=== PATIENT | male | born 1970 | race Caucasian/White ===

== ENCOUNTER → 2020-09-22 16:37 | Outpatient (CLI) | payer MEDICARE, SELFPAY ==
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
== END ==
PROVIDERS: PCP Internal Medicine; Referring Provider Nurse Practitioner; Visit Provider Nurse Practitioner
DX: S06.0X9A Concussion with loss of consciousness of unspecified duration, initial encounter (principal)
CPT/HCPCS: 70470; Q9967

== ENCOUNTER → 2020-10-27 17:50 | Outpatient (CLI) | payer MEDICARE, SELFPAY ==
--- NOTE | 2020-10-27 17:55 | CT_ITS ---
STUDY: CT ABDOMEN AND PELVIS WITHOUT CONTRAST REASON FOR EXAM: Male, 50 years old. PAIN, HERNIA RADIATION DOSAGE (If Supplied By Facility): CTDIvol = ( 27.66 ) mGy, DLP = ( 1397.05 ) mGycm TECHNIQUE: Transaxial images were obtained from the dome of the diaphragm to the symphysis pubis with oral contrast, and without intravenous contrast. Sagittal and coronal images were reconstructed. Individualized dose optimization techniques were used for this CT. COMPARISON: None. FINDINGS: The visualized lung bases are unremarkable. The visualized portions of the heart are within normal limits. Liver is unremarkable aside from subcentimeter simple cysts in the right lobe. Normal gallbladder and extrahepatic biliary system. Normal spleen. Normal pancreas. There is a 2.85 cm low attenuation left adrenal mass, consistent with an adrenal adenoma. Normal right adrenal gland. Normal right kidney. Normal left kidney. There is a small hiatal hernia. Multiple nondistended fluid-filled small bowel loops are noted consistent with ileus. On the axial images from image 43 through 49 there is mesenteric twisting which could be causing the ileus. There is no obstructing lesion noted. Retained stool noted in the colon with a few scattered diverticula. Evidence of previous surgery in the sigmoid colon without anastomotic leak. There is non-visualization of the appendix. There is diffuse atherosclerotic calcification of the abdominal aorta, without a demonstrated aneurysm. Normal inferior vena cava. Normal retroperitoneum. Normal urinary bladder. There are prostatic calcifications. There is a left-sided inguinal hernia containing adipose tissue. There are diffuse degenerative changes of the visualized lumbar spine, and pelvis. CT/Abdomen/Pel W ORAL Cont Only IMPRESSION: 2.85 cm left adrenal low-density lesion, likely adenoma. Simple cysts in the right lobe of the liver, no specific follow-up needed Small bowel ileus perhaps due to subtle twisting of the mid mesentery best seen on axial images 43 through 49 Diverticulosis Electronically Signed: Silvestre Kearns MD at 19:40 EDT , Service support ,
== END ==
PROVIDERS: PCP Internal Medicine; Referring Provider Internal Medicine; Visit Provider Internal Medicine
DX: R10.84 Generalized abdominal pain (principal)
CPT/HCPCS: 74176

== ENCOUNTER 2020-11-03 08:44 | Outpatient (RCR) | payer MEDICARE, SELFPAY ==
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
== END 2020-11-03 19:00 | disposition home or self-care (01) ==
LOC: PT 08:44
PROVIDERS: PCP Internal Medicine; Referring Provider Internal Medicine; Visit Provider Internal Medicine
DX: M25.511 Pain in right shoulder (principal); M54.12 Radiculopathy, cervical region
CPT/HCPCS: 97162

== ENCOUNTER → 2021-01-15 07:45 | Outpatient (CLI) | payer MEDICARE, SELFPAY ==
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
== END ==
PROVIDERS: PCP Internal Medicine; Referring Provider Otolaryngology; Visit Provider Otolaryngology
DX: J34.89 Other specified disorders of nose and nasal sinuses (principal); S09.92XA Unspecified injury of nose, initial encounter; Y09 Assault by unspecified means; Y93.9 Activity, unspecified; Y92.9 Unspecified place or not applicable; Y99.9 Unspecified external cause status
CPT/HCPCS: 70486

== ENCOUNTER 2021-06-09 02:13 | Emergency (ER) | payer MEDICARE, SELFPAY ==
[2021-06-09 02:15] VITALS: BP 116/73; PULSE 80; RESP 97; TEMP 36.6; BMI 43.9
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
[2021-06-09 03:09] VITALS: BP 112/69; PULSE 93; RESP 16; TEMP 36.9; O2SAT 98
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
--- NOTE | 2021-06-09 03:24 | NURSING ---
Patient refuses to sign ama papers at this time and asks I call for his ride.
--- NOTE | 2021-06-09 03:25 | ED.RN ---
Dr Jacob is aware of patient request to leave ama.
--- NOTE | 2021-06-09 03:26 | ED.RN ---
Left message to return call to [facility] ED
[2021-06-09 05:19] VITALS: RESP 17
[2021-06-09 07:19] LABS: Absolute Lymphocyte Count 2.46 X10^3/uL (0.83-4.51); Absolute Neutrophil Count 5.1 X10^3/uL (2.0-7.7); Basophil# 0.09 X10^3/uL; Eosinophil# 0.36 X10^3/uL; Eosinophils% 4.1 % (0-5); Hematocrit 48.3 % (40-54); Hemoglobin 16.1 g/dL (13.0-16.5); Lymphocyte # 2.46 X10^3/ul (0.83-4.51); Lymphocyte % 28.2 % (19-41); Mean Corp Hgb Conc 33.3 g/dL (32-36); Mean Corpuscular Hgb 30.8 pg (27.0-32.0); Mean Corpuscular Volume 92.4 fL (80-94); Mean Platelet Vol. 9.7 fl (6.2-12.0); Monocyte# 0.71 X10^3/uL; Monocyte% 8.1 % (0-10); NRBC Flagged by Analyzer 0 % (0-5); Neutrophil # 5.05 X10^3/uL (2.7-7.7); Platelet Count 270 K/mm3 (150-450); Red Blood Count 5.23 M/mm3 (4.6-6.2); White Blood Count 8.7 K/mm3 (4.4-11.0)
[2021-06-09 07:55] LABS: AST(SGOT) 19 U/L (15-37); Albumin, Serum 3.8 g/dL (3.2-5.0); BUN 15 mg/dL (7-18); BUN/Creat Ratio 12.2 RATIO (10-20); Calcium,Total 8.7 mg/dL (8.5-10.1); Creatinine, Serum 1.23 mg/dL (0.70-1.30); EST Glomerular Filtration Rate 65 mL/min (>60); Est Glom Filt Rate - Afr Amer 79 mL/min (>60); Estimated Creatinine Clearance 76.23 ml/min; Globulin 4.1 g/dL (2.2-4.2); Glucose 114 mg/dL (74-106); Lipase 259 U/L (73-393); Protein, Total 7.9 g/dL (6.4-8.2)
[2021-06-09 07:56] LABS: Alanine Aminotransfer ALT/SGPT 26 U/L (16-61); Alkaline Phosphatase 90 U/L (45-117); Anion Gap 8 (5-15); Bilirubin, Direct 0.08 mg/dL (0.00-0.30); Chloride 107 mmol/L (98-107); Potassium 3.7 mmol/L (3.5-5.1); Sodium Level 138 mmol/L (136-145)
== END 2021-06-09 05:21 | disposition left against medical advice (07) ==
PROVIDERS: Emergency Provider Emergency Medicine; PCP Internal Medicine
DX: R10.32 Left lower quadrant pain (principal); R19.7 Diarrhea, unspecified; Z53.29 Procedure and treatment not carried out because of patient's decision for other reasons; F17.210 Nicotine dependence, cigarettes, uncomplicated; E66.9 Obesity, unspecified; Z87.820 Personal history of traumatic brain injury; Z90.49 Acquired absence of other specified parts of digestive tract
CPT/HCPCS: 80048; 80076; 82077; 83690; 85025; 99285; J7030; A4216

== ENCOUNTER → 2023-04-12 | Outpatient (CLI) | payer MEDICARE, SELFPAY ==
--- NOTE | 2023-04-12 07:57 | CT_ITS ---
HISTORY: Adrenal nodule follow-up. TECHNIQUE: Helically acquired images were obtained of the abdomen before and after the intravenous administration of 100 mL Isovue 300. 507 images. COMPARISON: 10/27/2020. FINDINGS: LOWER CHEST: Lung bases clear. Coronary artery disease present. BOWEL: Bowel nondilated. Appendectomy. No focal inflammatory change observed. PERITONEUM: No significant free fluid. LIVER: Stable subcentimeter cysts in the right lobe. GALLBLADDER/BILIARY TREE: Gallbladder present. SPLEEN/PANCREAS: Homogeneous and nonenlarged. KIDNEYS: No hydronephrosis. Normal enhancement. ADRENAL GLANDS: Stable 2.3 x 2.7 cm low-attenuation left adrenal nodule. No right adrenal nodule. VESSELS: No abdominal aortic aneurysm or dissection. Mild atherosclerosis. ABDOMINAL WALL: Anterior mesh repair. OSSEOUS STRUCTURES: Mild degenerative change. CT/Abdomen WITH IV Contrast IMPRESSION: No significant interval change in size of left adrenal adenoma. Small hepatic cysts. Electronically Signed: Sury Nieves MD at 9:16 EDT ,
== END | disposition home or self-care (01) ==
PROVIDERS: PCP Internal Medicine; Referring Provider Internal Medicine; Visit Provider Internal Medicine
DX: E27.8 Other specified disorders of adrenal gland (principal)
CPT/HCPCS: 74160; Q9967

== ENCOUNTER → 2023-10-11 | Outpatient (CLI) | payer MEDICARE, SELFPAY ==
--- NOTE | 2023-10-11 10:35 | MRI_ITS ---
STUDY: MRI BRAIN WITHOUT CONTRAST REASON FOR EXAM: Male, 53 years old. ALTERED TASTE TECHNIQUE: Standardized multiplanar fat and water weighted pulse sequences were obtained. COMPARISON: None. FINDINGS: Normal size of the ventricles and extra-axial spaces for the patient''s age. There are a limited number of small white matter hyperintensities, distributed throughout the deep white matter tracts of the cerebral hemispheres, consistent with mild chronic white matter ischemic changes. There is no evidence for recent intracranial ischemia or other cause of cytotoxic edema on diffusion weighted imaging (DWI). Normal T2* images of the brain without demonstrated susceptibility artifact. There is no demonstrated hemosiderin stain. There are no demyelinating plagues of the supratentorial brain, brainstem or cerebellum. There are no findings suspicious for multiple sclerosis (MS). No hydrocephalus or midline shift is present. No infiltrative process or focal parenchymal edema is present. Normal bilateral basal ganglia. Normal thalami. There is no extra-axial fluid accumulation. Normal flow voids within the major intracranial circulation suggesting patency by spin echo criteria. Normal sella turcica, pituitary gland, infundibular stalk, optic chiasm and hypothalamus. Normal tectal plate and pineal gland. Normal midbrain, eslie and medulla. Normal cerebellum. Normal basal cisterns. Normal bilateral temporal bones. Normal bilateral internal auditory canals. No demonstrated orbital abnormality, within the constraints of a routine brain study. There is mucoperiosteal inflammatory disease of the paranasal sinuses consistent with moderate chronic sinusitis. Normal calvarium and skull base. Normal visualized soft tissue structures. Normal visualized upper cervical spine. MRI/Brain without Contrast IMPRESSION: 1. Mild chronic ischemic changes of the brain, as described above. 2. No hydrocephalus or midline shift is present. No infiltrative process or focal parenchymal edema is present. 3. No acute infarct or intracranial hemorrhage is present. Electronically Signed: Tj Salazar MD at 16:00 EDT ,
== END | disposition home or self-care (01) ==
LOC: MRI 10:02
PROVIDERS: PCP Internal Medicine; Referring Provider Internal Medicine; Visit Provider Internal Medicine
DX: R43.2 Parageusia (principal)
CPT/HCPCS: 70551

== ENCOUNTER 2025-05-21 06:53 | Day surgery (SDC) | payer MEDICARE, SELFPAY ==
[2025-05-21] VITALS (8 sets, daily range): BP systolic 77–148; BP diastolic 49–96; PULSE 64–73; RESP 16–18; TEMP 36.4–36.6; O2SAT 90–96; BMI 39.4
--- OUTSIDE RECORDS SUMMARY | 2025-05-21 07:03 | XMS RPT_ITS | CCD ---
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 No abnormal movements, No abnormal speech, No behavioral changes, No burning sensations, No confusion, No convulsions, No disequilibrium, No dizziness, No localized weakness, No frequent falls, No headache(s), No lack of coordination, No loss of vision, No memory loss, No numbness, No other visual disturbances, No radicular pain, No restless legs, No sensory deficit, No syncope, No tingling, No tremor(s), No weakness and No other Exam Const General: cooperative, healthy appearing and comfortable [facility] Head: normal to inspection Eyes General: appearance normal, both eyes and all related structures Neck Neck: normal visual inspection Resp Effort Inspection: normal respiratory effort Assessment and Plan Assessment and Plan (1) Encounter for screening for malignant neoplasm of colon: Status: Acute Plan: The patient is a 55-year-old male who is being seen today to schedule a colonoscopy. He is status post a Christel procedure and subsequent colostomy takedown about 5 years ago for perforated diverticulitis. He denies any significant recent GI issues or problems. We discussed the details of the planned colonoscopy including risks benefits and alternatives. He wishes t (more content not included)... Normal [facility] CBC panel Auto (Bld)on 02-02 Erythrocyte distribution width (RBC) [Ratio] 11.9 % Normal 11.5-15.0 [facility] Comment on above: Order Comment: Speci men Type: BLOOD SPECIMEN Performed By: #### 5 8410-2 #### [facility] CLIA [id number] [address] [place] [address] Hematocrit (Bld) [Volume fraction] 49.1 % Normal 39.0-51.0 [facility] Comment on above: Order Comment: Speci men Type: BLOOD SPECIMEN Performed By: #### 5 8410-2 #### [facility] CLIA [id number] [address] [place] [address] Hemoglobin (Bld) [Mass/Vol] 16.2 g/dL Normal 13.0-17.0 [facility] Comment on above: Order Comment: Speci men Type: BLOOD SPECIMEN Performed By: #### 5 8410-2 #### [facility] CLIA [id number] [address] [place] [address] MCH (RBC) [Entitic mass] 30.9 pg Normal 26.0-34.0 [facility] Comment on above: Order Comment: Speci men Type: BLOOD SPECIMEN Performed By: #### 5 8410-2 #### [facility] CLIA [id number] [address] [place] [address] MCHC (RBC) [Mass/Vol] 33.0 g/dL Normal 30.5-36.0 [facility] Comment on above: Order Comment: Speci men Type: BLOOD SPECIMEN Performed By: #### 5 8410-2 #### [facility] CLIA [id number] [address] [place] [address] MCV (RBC) [Entitic vol] 93.7 fL Normal 80.0-100.0 [facility] Comment on above: Order Comment: Speci men Type: BLOOD SPECIMEN Performed By: #### 5 8410-2 #### [facility] CLIA [id number] [address] [place] [address] Nucleated RBC (Bld) [#/Vol] 10*3/uL Normal <0.01 [facility] Comment on above: Order Comment: Speci men Type: BLOOD SPECIMEN Performed By: #### 5 8410-2 #### [facility] CLIA [id number] [address] [place] [address] Platelet mean volume (Bld) [Entitic vol] 10.4 fL Normal 9.0-12.7 [facility] Comment on above: Order Comment: Speci men Type: BLOOD SPECIMEN Performed By: #### 5 8410-2 #### [facility] CLIA [id number] [address] [place] [address] Platelets (Bld) [#/Vol] 241 10*3/uL Normal 150-400 [facility] Comment on above: Order Comment: Speci men Type: BLOOD SPECIMEN Performed By: #### 5 8410-2 #### [facility] CLIA [id number] [address] [place] [address] RBC (Bld) [#/Vol] 5.24 10*6/uL Normal 4.20-6.00 [facility] Comment on above: Order Comment: Speci men Type: BLOOD SPECIMEN Performed By: #### 5 8410-2 #### [facility] CLIA [id number] [address] [place] [address] WBC (Bld) [#/Vol] 7.55 10*3/uL Normal 3.70-11.00 [facility] Comment on above: Order Comment: Speci men Type: BLOOD SPECIMEN Performed By: #### 5 8410-2 #### [facility] CLIA [id number] [address] [place] [address] CRP SerPl-mCncon 02-02-2021 CRP [Mass/Vol] mg/L Normal <0.9 [facility] Comment on above: Order Comment: Speci men Type: BLOOD SPECIMEN Performed By: #### 2 4323-02, 1987-11 #### [facility] CLIA [id number] [address] [place] [address] Comprehensive metabolic 2000 panelon 02-02-2021 Albumin [Mass/Vol] 4.6 g/dL Normal 3.9-4.9 [facility] Comment on above: Order Comment: Speci men Type: BLOOD SPECIMEN Performed By: #### 2 4323-02, 1987-11 #### [facility] CLIA [id number] [address] [place] [address] ALP [Catalytic activity/Vol] 94 U/L Normal 38-113 [facility] Comment on above: Order Comment: Speci men Type: BLOOD SPECIMEN Performed By: #### 2 4323-02, 1987-11 #### [facility] CLIA [id number] [address] [place] [address] ALT With P-5'-P [Catalytic activity/Vol] 16 U/L Normal 10-54 [facility] Comment on above: Order Comment: Speci men Type: BLOOD SPECIMEN Performed By: #### 2 4323-02, 1987-11 #### [facility] CLIA [id number] [address] [place] [address] Anion gap [Moles/Vol] 9 mmol/L Normal 9-18 [facility] Comment on above: Order Comment: Speci men Type: BLOOD SPECIMEN Performed By: #### 2 4323-02, 1987-11 #### [facility] CLIA [id number] [address] [place] [address] AST With P-5'-P [Catalytic activity/Vol] 14 U/L Normal 14-40 [facility] Comment on above: Order Comment: Speci men Type: BLOOD SPECIMEN Performed By: #### 2 4323-02, 1987-11 #### [facility] CLIA [id number] [address] [place] [address] Bilirubin [Mass/Vol] 0.2 mg/dL Normal 0.2-1.3 [facility] Comment on above: Order Comment: Speci men Type: BLOOD SPECIMEN Performed By: #### 2 4323-02, 1987-11 #### [facility] CLIA [id number] [address] [place] [address] Calcium [Mass/Vol] 9.9 mg/dL Normal 8.5-10.2 [facility] Comment on above: Order Comment: Speci men Type: BLOOD SPECIMEN Performed By: #### 2 4323-02, 1987-11 #### [facility] CLIA [id number] [address] [place] [address] Chloride [Moles/Vol] 105 mmol/L Normal 97-105 [facility] Comment on above: Order Comment: Speci men Type: BLOOD SPECIMEN Performed By: #### 2 4323-02, 1987-11 #### [facility] CLIA [id number] [address] [place] [address] CO2 [Moles/Vol] 26 mmol/L Normal 22-30 [facility] Comment on above: Order Comment: Speci men Type: BLOOD SPECIMEN Performed By: #### 2 4323-02, 1987-11 #### [facility] CLIA [id number] [address] [place] [address] Creatinine [Mass/Vol] 1.25 mg/dL High 0.73-1.22 [facility] Comment on above: Order Comment: Speci men Type: BLOOD SPECIMEN Performed By: #### 2 4323-02, 1987-11 #### [facility] CLIA [id number] [address] [place] [address] GFR/1.73 sq M.predicted MDRD (S/P/Bld) [Vol rate/Area] mL/min/{1.73_m2} Normal [facility] Comment on above: Order Comment: Speci men Type: BLOOD SPECIMEN Result Comment: >60 eGFR (Estimated GFR) Units of measure: mL/min/1.73 meters squared eGFR is derived from the reexpressed MDRD Study equation using the following parameters: serum creatinine, age, gender and race. The creatinine assay has been calibrated to be traceable to IDMS. An eGFR <60 mL/min/1.73m2 for >3 months is consistent with chronic kidney disease. Refer to KDOQI guidelines for clinical interpretation. In patients with unstable renal function, e.g. those with acute kidney injury, the eGFR may not accurately reflect actual GFR. Performed By: #### 2 4323-02, 1987-11 #### [facility] CLIA [id number] [address] [place] [address] Glucose [Mass/Vol] 111 mg/dL High 74-99 [facility] Comment on above: Order Comment: Speci men Type: BLOOD SPECIMEN Result Comment: The [place] Diabetes Association (ADA) provides guidance for cutoff values for fasting glucose and random glucose. The ADA defines fasting as no caloric intake for at least 8 hours. Fasting plasma glucose results between 100 to 125 mg/dL indicate increased risk for diabetes (prediabetes). Fasting plasma glucose results greater than or equal to 126 mg/dL meet the criteria for diagnosis of diabetes. In the absence of unequivocal hyperglycemia, results should be confirmed by repeat testing. In a patient with classic symptoms of hyperglycemia or hyperglycemic crisis, random plasma glucose results greater than or equal to 200 mg/dL meet the criteria for diagnosis of diabetes. Reference: Standards of Medical Care in Diabetes 2016, [place] [employer] Association. Diabetes Care. 2016.39(Suppl 1). Performed By: #### 2 1987-11 #### [facility] CLIA [id number] [address] [place] [address] Potassium [Moles/Vol] 4.4 mmol/L Normal 3.7-5.1 [facility] Comment on above: Order Comment: Speci men Type: BLOOD SPECIMEN Performed By: #### 2 4323-02, 1987-11 #### [facility] CLIA [id number] [address] [place] [address] Protein [Mass/Vol] 7.3 g/dL Normal 6.3-8.0 [facility] Comment on above: Order Comment: Speci men Type: BLOOD SPECIMEN Performed By: #### 2 4323-02, 1987-11 #### [facility] CLIA [id number] [address] [place] [address] Sodium [Moles/Vol] 140 mmol/L Normal 136-144 [facility] Comment on above: Order Comment: Speci men Type: BLOOD SPECIMEN Performed By: #### 2 43238, 1987-11 #### [facility] CLIA [id number] [address] [place] [address] Urea nitrogen [Mass/Vol] 16 mg/dL Normal 9-24 [facility] Comment on above: Order Comment: Speci men Type: BLOOD SPECIMEN Performed By: #### 2 4323-8, 1987-11 #### [facility] CLIA [id number] [address] [place] [address] ESR Westergren method (Bld) [Velocity]on 02-02-2021 ESR (Bld) [Velocity] 6 mm/h Normal 0-15 [facility] Comment on above: Order Comment: Speci men Type: BLOOD SPECIMEN Performed By: #### 4 537-7 #### [facility] CLIA [id number] [address] [place] [address] CT Head or Brain w/o Contras ton 11-19-2020 CT Head or Brain w/o Contrast Patient [facility]: [facility]ICH[id number] Computed Tomography ACCESSION EXAM DATE/TIME PROCEDURE ORDERING PROVIDER [id number] 11/18/2020 22:[address] Head or Brain w/o Calvin -SWATI HAQUE Contrast CPT code 99659 Reason For Exam (CT Head or Brain w/o Contrast) Fall, head trauma, intoxicated Report CT HEAD WITHOUT CONTRAST: INDICATION: Trauma COMPARISON: None. Unenhanced CT images of the head from skull base to vertex were obtained. The images are reviewed in the axial, sagittal and coronal planes. The ventricles and sulci are prominent in size. There is no evidence of hemorrhage, mass or large acute infarct. There is no mass or significant shift of the midline structures. There are no extraaxial or posterior fossa masses or fluid collections. The hypothalamic and parasellar regions are unremarkable. There is patchy opacification of the ethmoid air cells with mucosal thickening of the sphenoid sinuses. IMPRESSION: Negative CT examination of the brain. Report Dictated on Final Dictating Physician: DO DALLAS ALFRED Signed Date and Time: 11/18/2020 10:35 pm Signed by: DO DALLAS ALFRED Transcribed Date and Time: 11/18/2020 10:36 Normal [facility] CT Spine Cervical w/o Contra ston 11-19-2020 CT Spine Cervical w/o Contrast Patient Name: SHERLEY RICHARDS Computed Tomography ACCESSION EXAM DATE/TIME PROCEDURE ORDERING PROVIDER [id number] 11/18/2020 22:[address] Spine Cervical w/o Calvin -SWATI HAQUE Contrast CPT code 21647 Reason For Exam (CT Spine Cervical w/o Contrast) fall, head trauma, intoxicated Report CT CERVICAL SPINE WITHOUT CONTRAST: INDICATION: Trauma, neck pain COMPARISON: None. Axial scans of the cervical spine performed from the skull base to the thoracic inlet, with sagittal and coronal reconstructions. On the sagittal reconstruction images, the anatomic alignment of the vertebral bodies is normal. There is no evidence of fracture or subluxation in the cervical spine. The prevertebral soft-tissues are normal. Multilevel disc space narrowing is present, most notably at C3-C4, C5-C6 and C6-C7 with marginal spurring at these levels and bilateral foraminal encroachment. The craniocervical junction and C1-2 junction appear normal. The odontoid is intact. IMPRESSION: Multilevel arthritic changes with disc space narrowing and marginal spurring. No fractures are seen. Report Dictated on Final Dictating Physician: DO DALLAS ALFRED Signed Date and Time: 11/18/2020 10:37 pm Signed by: DO DALLAS ALFRED Transcribed Date and Time: 11/18/2020 10:38 Normal [facility] CT CERVICAL SPINE WO CONTRAS TOrdered By: Swati Haque on 11-18-2020 Patient Name: SHERLEY RICHARDS Computed Tomography ACCESSION EXAM DATE/TIME PROCEDURE ORDERING PROVIDER [id number] 11/18/2020 22:[address] Spine Cervical w/o 5794 -GARLAND, SWATI Contrast CPT code 12366 Reason For Exam (CT Spine Cervical w/o Contrast) fall, head trauma, intoxicated Report CT CERVICAL SPINE WITHOUT CONTRAST: INDICATION: Trauma, neck pain COMPARISON: None. Axial scans of the cervical spine performed from the skull base to the thoracic inlet, with sagittal and coronal reconstructions. On the sagittal reconstruction images, the anatomic alignment of the vertebral bodies is normal. There is no evidence of fracture or subluxation in the cervical spine. The prevertebral soft-tissues are normal. Multilevel disc space narrowing is present, most notably at C3-C4, C5-C6 and C6-C7 with marginal spurring at these levels and bilateral foraminal encroachment. The craniocervical junction and C1-2 junction appear normal. The odontoid is intact. IMPRESSION: Multilevel arthritic changes with disc space narrowing and marginal spurring. No fractures are seen. Report Dictated on --- Final --- Dictating Physician: DO DALLAS ALFRED Signed Date and Time: 11/18/2020 10:37 pm Signed by: DO DALLAS ALFRED Transcribed Date and Time: 11/18/2020 10:38 [facility] Work Phone: [facility] Incoming Radiology Results From [facility] - 11/18/2020 10:38 PM EDT Patient Name: [id number] Computed Tomography ACCESSION EXAM DATE/TIME PROCEDURE ORDERING PROVIDER [id number] 11/18/2020 22:[address] Spine Cervical w/o 5794 -GARLAND, SWATI Contrast CPT code 32501 Reason For Exam (CT Spine Cervical w/o Contrast) fall, head trauma, intoxicated Report CT CERVICAL SPINE WITHOUT CONTRAST: INDICATION: Trauma, neck pain COMPARISON: None. Axial scans of the cervical spine performed from the skull base to the thoracic inlet, with sagittal and coronal reconstructions. On the sagittal reconstruction images, the anatomic alignment of the vertebral bodies is normal. There is no evidence of fracture or subluxation in the cervical spine. The prevertebral soft-tissues are normal. Multilevel disc space narrowing is present, most notably at C3-C4, C5-C6 and C6-C7 with marginal spurring at these levels and bilateral foraminal encroachment. The craniocervical junction and C1-2 junction appear normal. The odontoid is intact. IMPRESSION: Multilevel arthritic changes with disc space narrowing and marginal spurring. No fractures are seen. Report Dictated on --- Final --- Dictating Physician: DO DALLAS ALFRED Signed Date and Time: 11/18/2020 10:37 pm Signed by: DO DALLAS ALFRED Transcribed Date and Time: 11/18/2020 10:38 [facility] Work Phone: CT HEAD WO CONTRASTOrdered B y: Swati Haque on 11-18-2020 Patient Name: SHERLEY RICHARDS Computed Tomography ACCESSION EXAM DATE/TIME PROCEDURE ORDERING PROVIDER [id number] 11/18/2020 22:[address] Head or Brain w/o 5794 -SWATI HAQUE Contrast CPT code 93147 Reason For Exam (CT Head or Brain w/o Contrast) Fall, head trauma, intoxicated Report CT HEAD WITHOUT CONTRAST: INDICATION: Trauma COMPARISON: None. Unenhanced CT images of the head from skull base to vertex were obtained. The images are reviewed in the axial, sagittal and coronal planes. The ventricles and sulci are prominent in size. There is no evidence of hemorrhage, mass or large acute infarct. There is no mass or significant shift of the midline structures. There are no extraaxial or posterior fossa masses or fluid collections. The hypothalamic and parasellar regions are unremarkable. There is patchy opacification of the ethmoid air cells with mucosal thickening of the sphenoid sinuses. IMPRESSION: Negative CT examination of the brain. Report Dictated on --- Final --- Dictating Physician: DO DALLAS ALFRED Signed Date and Time: 11/18/2020 10:35 pm Signed by: DO DALLAS ALFRED Transcribed Date and Time: 11/18/2020 10:36 [facility] Work Phone: [facility], [facility] Incoming Radiology Results From [facility] - 11/18/2020 10:36 PM EDT Patient Name: SHERLEY RICHARDS Computed Tomography ACCESSION EXAM DATE/TIME PROCEDURE ORDERING PROVIDER [id number] 11/18/2020 22:[address] Head or Brain w/o EmanuelGagan -GARLAND SWATI Contrast CPT code 47039 Reason For Exam (CT Head or Brain w/o Contrast) Fall, head trauma, intoxicated Report CT HEAD WITHOUT CONTRAST: INDICATION: Trauma COMPARISON: None. Unenhanced CT images of the head from skull base to vertex were obtained. The images are reviewed in the axial, sagittal and coronal planes. The ventricles and sulci are prominent in size. There is no evidence of hemorrhage, mass or large acute infarct. There is no mass or significant shift of the midline structures. There are no extraaxial or posterior fossa masses or fluid collections. The hypothalamic and parasellar regions are unremarkable. There is patchy opacification of the ethmoid air cells with mucosal thickening of the sphenoid sinuses. IMPRESSION: Negative CT examination of the brain. Report Dictated on --- Final --- Dictating Physician: DO DALLAS ALFRED Signed Date and Time: 11/18/2020 10:35 pm Signed by: DO DALLAS ALFRED Transcribed Date and Time: 11/18/2020 10:36 [facility] Work Phone: MRI BRAIN W WO CONTRASTOrder ed By: Arash Gruber on 10-31-2020 Patient Name: SHERLEY RICHARDS [facility] ACCESSION EXAM DATE/TIME PROCEDURE ORDERING PROVIDER [id number] 10/31/2020 11:46 EDT MRI Brain w/ + w/o MD ALLYN, ARASH Garcia CPT code 22784 Reason For Exam (MRI Brain w/ + w/o Contrast) concussion Report There is a Reasons for examination: Concussion. MR scan of the brain was performed with sagittal and coronal T1 weighted, axial T2 weighted and FLAIR scans, and axial diffusion and centrally weighted scans. After intravenous gadolinium, axial T1-weighted images are repeated There is mild generalized parenchymal volume loss, with remote - appearing small vessel white matter chronic ischemic/neurodegenera tive changes in the periventricular and subcortical white matter. There are dilated perivascular spaces. There is no evidence of acute infarction, and the diffusion-weighted images are negative. There is no evidence of mass lesion, edema, nor hemorrhage. There is no hydrocephalus, shift, or herniation. No epidural or subdural collections are present. The hypothalamus and pituitary regions are normal. The brain stem, cerebellum, and cranial - cervical junction are normal. The globes and orbital contents are grossly normal. There is mild mucosal thickening in the paranasal sinuses. No unusual enhancement seen after intravenous gadolinium. IMPRESSION: 1. Mild atrophy for age and remote mainly subcortical white matter minimal probable small vessel ischemic/neurodegenera tive changes. 2. No evidence of acute infarction or mass or hemorrhage. Mild scattered mucosal thickening paranasal sinuses and some left mastoid air cells Magnetic Resonance Imaging Report Report Dictated on --- Final --- Dictated: 10/31/2020 12:12 pm Dictating Physician: MD SULLIVAN WILLIAM Signed Date and Time: 10/31/2020 12:23 pm Signed by: MD SULLIVAN WILLIAM Transcribed Date and Time: 10/31/2020 12:12 [facility] Work Phone: [facility], [facility] Incoming Radiology Results From [facility] - 10/31/2020 12:24 PM EDT Patient Name: SHERLEY RICHARDS [facility] ACCESSION EXAM DATE/TIME PROCEDURE ORDERING PROVIDER [id number] 10/31/2020 11:46 EDT MRI Brain w/ + w/o MD ALLYN, ARASH Caldwell Contrast CPT code 21582 Reason For Exam (MRI Brain w/ + w/o Contrast) concussion Report There is a Reasons for examination: Concussion. MR scan of the brain was performed with sagittal and coronal T1 weighted, axial T2 weighted and FLAIR scans, and axial diffusion and centrally weighted scans. After intravenous gadolinium, axial T1-weighted images are repeated There is mild generalized parenchymal volume loss, with remote - appearing small vessel white matter chronic ischemic/neurodegenera tive changes in the periventricular and subcortical white matter. There are dilated perivascular spaces. There is no evidence of acute infarction, and the diffusion-weighted images are negative. There is no evidence of mass lesion, edema, nor hemorrhage. There is no hydrocephalus, shift, or herniation. No epidural or subdural collections are present. The hypothalamus and pituitary regions are normal. The brain stem, cerebellum, and cranial - cervical junction are normal. The globes and orbital contents are grossly normal. There is mild mucosal thickening in the paranasal sinuses. No unusual enhancement seen after intravenous gadolinium. IMPRESSION: 1. Mild atrophy for age and remote mainly subcortical white matter minimal probable small vessel ischemic/neurodegenera tive changes. 2. No evidence of acute infarction or mass or hemorrhage. Mild scattered mucosal thickening paranasal sinuses and some left mastoid air cells Magnetic Resonance Imaging Report Report Dictated on --- Final --- Dictated: 10/31/2020 12:12 pm Dictating Physician: MD SULLIVAN WILLIAM Signed Date and Time: 10/31/2020 12:23 pm Signed by: MD SULLIVAN WILLIAM Transcribed Date and Time: 10/31/2020 12:12 [facility] Work Phone: MRI Brain w/ + w/o Contrasto n 10-31-2020 MRI Brain w/ + w/o Contrast Patient [facility]: [id number] Imaging ACCESSION EXAM DATE/TIME PROCEDURE ORDERING PROVIDER [id number] 10/31/2020 11:46 EDT MRI Brain w/ + w/o MD ALLYN, ARASH Caldwell Contrast CPT code 85213 Reason For Exam (MRI Brain w/ + w/o Contrast) concussion Report There is a Reasons for examination: Concussion. MR scan of the brain was performed with sagittal and coronal T1 weighted, axial T2 weighted and FLAIR scans, and axial diffusion and centrally weighted scans. After intravenous gadolinium, axial T1-weighted images are repeated There is mild generalized parenchymal volume loss, with remote - appearing small vessel white matter chronic ischemic/neurodegenera tive changes in the periventricular and subcortical white matter. There are dilated perivascular spaces. There is no evidence of acute infarction, and the diffusion-weighted images are negative. There is no evidence of mass lesion, edema, nor hemorrhage. There is no hydrocephalus, shift, or herniation. No epidural or subdural collections are present. The hypothalamus and pituitary regions are normal. The brain stem, cerebellum, and cranial - cervical junction are normal. The globes and orbital contents are grossly normal. There is mild mucosal thickening in the paranasal sinuses. No unusual enhancement seen after intravenous gadolinium. IMPRESSION: 1. Mild atrophy for age and remote mainly subcortical white matter minimal probable small vessel ischemic/neurodegenera tive changes. 2. No evidence of acute infarction or mass or hemorrhage. Mild scattered mucosal thickening paranasal sinuses and some left mastoid air cells Magnetic Resonance Imaging Report Report Dictated on Final Dictated: 10/31/2020 12:12 pm Dictating Physician: MD SULLIVAN WILLIAM Signed Date and Time: 10/31/2020 12:23 pm Signed by: MD SULLIVAN WILLIAM Transcribed Date and Time: 10/31/2020 12:12 Normal [facility] CBC, Platelets & Auto Diff ( [id number])Ordered By: Paint Mixer Machine on 09-17-2020 Basophils (Bld) [#/Vol] 0.1 {x10E3/uL} Normal 0.0-0.2 [facility]; [facility] Work Phone: Comment on above: PATIENT NOT FASTINGP ERFORMED BY: [employer] Icnxbw6841 [facility] [id number] Basophils (Bld) [#/Vol] 0.1 10*3/uL Normal 0.0-0.2 [facility]; [facility] Work Phone: Comment on above: PATIENT NOT FASTINGP ERFORMED BY: CB [facility] Xkywzf0521 [address] [facility]At[facility] [id number] Basophils/100 WBC (Bld) 1 % Normal [facility]; [facility] Work Phone: Comment on above: PATIENT NOT FASTINGP ERFORMED BY: CB [facility] Uxswix1253 [address] [facility]At[facility] [id number] Eosinophils (Bld) [#/Vol] 0.3 {x10E3/uL} Normal 0.0-0.4 [facility]; [facility] Work Phone: Comment on above: PATIENT NOT FASTINGP ERFORMED BY: [facility] Zhoupf0109 [address] [facility] [id number] Eosinophils (Bld) [#/Vol] 0.3 10*3/uL Normal 0.0-0.4 [facility]; [facility] Work Phone: Comment on above: PATIENT NOT FASTINGP ERFORMED BY: FATMATA Summers6370 [address] [facility] [place] [id number] Eosinophils/100 WBC (Bld) 3 % Normal [facility]; [facility] Work Phone: Comment on above: PATIENT NOT FASTINGP ERFORMED BY: FATMATA [employer] Pdoran4970 [address] [facility] [id number] Erythrocyte distribution width (RBC) [Ratio] 12.4 % Normal 11.6-15.4 [facility]; [facility] Work Phone: Comment on above: PATIENT NOT FASTINGP ERFORMED BY: FATMATA Ragsdale Lobnjk4817 [address] [facility] [id number] Hematocrit (Bld) [Volume fraction] 48.2 % Normal 37.5-51.0 [facility]; [facility] Work Phone: Comment on above: PATIENT NOT FASTINGP ERFORMED BY: FATMATA Cancholalin6370 [address] [facility] [id number] Hemoglobin (Bld) [Mass/Vol] 16.4 g/dL Normal 13.0-17.7 [facility]; [facility] Work Phone: Comment on above: PATIENT NOT FASTINGP ERFORMED BY: FATMATA [facility] Vunfew1315 [address] [facility] [id number] Immature granulocytes (Bld) [#/Vol] 0.0 {x10E3/uL} Normal 0.0-0.1 [facility]; [facility] Work Phone: Comment on above: PATIENT NOT FASTINGP ERFORMED BY: FATMATA [facility] Ugkchp5545 [address] [facility] [id number] Immature granulocytes (Bld) [#/Vol] 0.0 10*3/uL Normal 0.0-0.1 [facility]; [facility] Work Phone: Comment on above: PATIENT NOT FASTINGP ERFORMED BY: FATMATA [facility] Jjirmk8415 [address] RoadDublin [place] [id number] Immature granulocytes/100 WBC (Bld) 1 % Normal [facility]; [facility] Work Phone: Comment on above: PATIENT NOT FASTINGP ERFORMED BY: CB [facility] Yxmznu8138 [address] RoadDublin [place] [id number] Lymphocytes (Bld) [#/Vol] 2.4 {x10E3/uL} Normal 0.7-3.1 [facility]; [facility] Work Phone: Comment on above: PATIENT NOT FASTINGP ERFORMED BY: [facility] Qjhkzm3331 [address] [facility]in [place] [id number] Lymphocytes (Bld) [#/Vol] 2.4 10*3/uL Normal 0.7-3.1 [facility]; [facility] Work Phone: Comment on above: PATIENT NOT FASTINGP ERFORMED BY: [facility] Xunpiz8580 [address] RoadFormerly [facility] Countyin [place] [id number] Lymphocytes/100 WBC (Bld) 29 % Normal [facility]; [facility] Work Phone: Comment on above: PATIENT NOT FASTINGP ERFORMED BY: [facility] Sfwbtk7483 [address] [facility] [place] [id number] MCH (RBC) [Entitic mass] 30.5 pg Normal 26.6-33.0 [facility]; [facility] Work Phone: Comment on above: PATIENT NOT FASTINGP ERFORMED BY: [facility] Azhlmi2857 [address] [facility] [place] [id number] MCHC (RBC) [Mass/Vol] 34.0 g/dL Normal 31.5-35.7 [facility]; [facility] Work Phone: Comment on above: PATIENT NOT FASTINGP ERFORMED BY: CB [facility] Opfrdx6964 [address] [facility] HospitalD[facility] [place] [id number] MCV (RBC) [Entitic vol] 90 fL Normal 79-97 [facility]; [facility] Work Phone: Comment on above: PATIENT NOT FASTINGP ERFORMED BY: CB [facility] Ldiqgk7233 [address] RoadDublin [place] [id number] Monocytes (Bld) [#/Vol] 0.7 {x10E3/uL} Normal 0.1-0.9 [facility]; [facility] Work Phone: Comment on above: PATIENT NOT FASTINGP ERFORMED BY: CB [facility] Ftrwbx9783 [address] RoadDublin [place] [id number] Monocytes (Bld) [#/Vol] 0.7 10*3/uL Normal 0.1-0.9 [facility]; [facility] Work Phone: Comment on above: PATIENT NOT FASTINGP ERFORMED BY: CB [facility] Sjclho0369 [address] RoadDublin [place] [id number] Monocytes/100 WBC (Bld) 8 % Normal [facility]; [facility] Work Phone: Comment on above: PATIENT NOT FASTINGP ERFORMED BY: CB [facility] Lyrakt8451 [address] RoadDublin [place] [id number] Neutrophils (Bld) [#/Vol] 4.8 {x10E3/uL} Normal 1.4-7.0 [facility]; [facility] Work Phone: Comment on above: PATIENT NOT FASTINGP ERFORMED BY: CB [facility] Mjjona3914 [address] RoadDublin [place] [id number] Neutrophils (Bld) [#/Vol] 4.8 10*3/uL Normal 1.4-7.0 [facility]; [facility] Work Phone: Comment on above: PATIENT NOT FASTINGP ERFORMED BY: CB [facility] Abuezt1738 [address] RoadDublin [place] [id number] Neutrophils/100 WBC (Bld) 58 % Normal [facility]; [facility] Work Phone: Comment on above: PATIENT NOT FASTINGP ERFORMED BY: CB [facility] Cymmvy5841 [address] RoadDublin [place] [id number] Platelets (Bld) [#/Vol] 260 {x10E3/uL} Normal 150-450 [facility]; [facility] Work Phone: Comment on above: PATIENT NOT FASTINGP ERFORMED BY: CB [facility] Canfbt9480 [address] RoadDublin [place] [id number] Platelets (Bld) [#/Vol] 260 10*3/uL Normal 150-450 [facility]; [facility] Work Phone: Comment on above: PATIENT NOT FASTINGP ERFORMED BY: CB [facility] Nniiuu4531 [address] RoadDublin [place] [id number] RBC (Bld) [#/Vol] 5.37 {x10E6/uL} Normal 4.14-5.80 [facility]; [facility] Work Phone: Comment on above: PATIENT NOT FASTINGP ERFORMED BY: CB [facility] Fakekt6534 [address] RoadDublin [place] [id number] RBC (Bld) [#/Vol] 5.37 10*6/uL Normal 4.14-5.80 [facility]; [facility] Work Phone: Comment on above: PATIENT NOT FASTINGP ERFORMED BY: CB [facility] Yhdmty9124 [address] RoadDublin [place] [id number] WBC (Bld) [#/Vol] 8.2 {x10E3/uL} Normal 3.4-10.8 [facility]; [facility] Work Phone: Comment on above: PATIENT NOT FASTINGP ERFORMED BY: CB [facility] Zeuiol3860 [address] RoadDublin [place] [id number] WBC (Bld) [#/Vol] 8.2 10*3/uL Normal 3.4-10.8 [facility] Internal [facility]; [facility] Work Phone: Comment on above: PATIENT NOT FASTINGP ERFORMED BY: CB [facility] Quhomb0003 [address] RoadDublin [place] [id number] Metabolic Panel, Comprehensi ve ([id number])Ordered By: Paint Mixer Machine on 09-17-2020 Albumin [Mass/Vol] 4.5 g/dL Normal 3.8-4.9 [facility]; [facility] Work Phone: Comment on above: PATIENT NOT FASTINGP ERFORMED BY: CB [facility] Uqitzc9039 [address] RoadDublin [place] [id number] Albumin/Globulin [Mass ratio] 1.7 {ratio} Normal 1.2-2.2 [facility]; [facility] Work Phone: Comment on above: PATIENT NOT FASTINGP ERFORMED BY: CB [facility] Rymdlh2384 [address] RoadDublin [place] [id number] ALP [Catalytic activity/Vol] 96 [iU]/L Normal 39-117 [facility]; [facility] Work Phone: Comment on above: PATIENT NOT FASTINGP ERFORMED BY: CB [facility] Xlnovv0171 [address] RoadDublin [place] [id number] ALP [Catalytic activity/Vol] 96 U/L Normal 39-117 [facility]; [facility] Work Phone: Comment on above: PATIENT NOT FASTINGP ERFORMED BY: CB [facility] Bvtapr1442 [address] RoadDublin [place] [id number] ALT [Catalytic activity/Vol] 15 [iU]/L Normal 0-44 [facility]; [facility] Work Phone: Comment on above: PATIENT NOT FASTINGP ERFORMED BY: CB [facility] Uxtqht9471 [address] RoadDublin [place] [id number] ALT [Catalytic activity/Vol] 15 U/L Normal 0-44 [facility]; [facility] Work Phone: Comment on above: PATIENT NOT FASTINGP ERFORMED BY: CB [facility] Jnrqaf9496 [address] RoadDublin [place] [id number] AST [Catalytic activity/Vol] 15 [iU]/L Normal 0-40 [facility]; [facility] Work Phone: Comment on above: PATIENT NOT FASTINGP ERFORMED BY: CB [facility] Vrcanv4629 [address] RoadDublin [place] [id number] AST [Catalytic activity/Vol] 15 U/L Normal 0-40 [facility]; [facility] Work Phone: Comment on above: PATIENT NOT FASTINGP ERFORMED BY: CB [facility] Tnwnvl9892 [address] RoadDublin [place] [id number] Bilirubin [Mass/Vol] 0.3 mg/dL Normal 0.0-1.2 [facility]; [facility] Work Phone: Comment on above: PATIENT NOT FASTINGP ERFORMED BY: CB [facility] Zzowwc9191 [address] RoadDublin [place] [id number] Calcium [Mass/Vol] 10.2 mg/dL Normal 8.7-10.2 [facility] Internal [facility]; [facility] Work Phone: Comment on above: PATIENT NOT FASTINGP ERFORMED BY: CB [facility] Egpyxl9555 [address] RoadDublin [place] [id number] Chloride [Moles/Vol] 100 mmol/L Normal 96-106 [facility]; [facility] Work Phone: Comment on above: PATIENT NOT FASTINGP ERFORMED BY: CB [facility] Yfoqwo3480 [address] RoadDublin [place] [id number] CO2 [Moles/Vol] 25 mmol/L Normal 20-29 [facility] Internal [facility]; [facility] Work Phone: Comment on above: PATIENT NOT FASTINGP ERFORMED BY: CB [facility] Lwljic8646 [address] RoadDublin [place] [id number] Creatinine [Mass/Vol] 1.23 mg/dL Normal 0.76-1.27 [facility]; [facility] Work Phone: Comment on above: PATIENT NOT FASTINGP ERFORMED BY: CB [facility] Odrojw1737 [address] RoadDublin [place] [id number] GFR/1.73 sq M predicted among blacks CKD-EPI (S/P/Bld) [Vol rate/Area] 78 mL/min/1.73 Normal [facility]; [facility] Work Phone: Comment on above: PATIENT NOT FASTINGP ERFORMED BY: CB [facility] Klqgsf9884 [address] RoadDublin [place] [id number] GFR/1.73 sq M predicted among non-blacks CKD-EPI (S/P/Bld) [Vol rate/Area] 67 mL/min/1.73 Normal [facility]; [facility] Work Phone: Comment on above: PATIENT NOT FASTINGP ERFORMED BY: CB [facility] Bgosem1186 [address] RoadDublin [place] [id number] Globulin (S) [Mass/Vol] 2.7 g/dL Normal 1.5-4.5 [facility]; [facility] Work Phone: Comment on above: PATIENT NOT FASTINGP ERFORMED BY: CB [facility] Chqbvl7942 [address] RoadDublin [place] [id number] Glucose [Mass/Vol] 89 mg/dL Normal 65-99 [facility]; [facility] Work Phone: Comment on above: PATIENT NOT FASTINGP ERFORMED BY: CB [facility] Etbesa8991 [address] RoadFormerly [facility]in [place] [id number] Potassium [Moles/Vol] 4.7 mmol/L Normal 3.5-5.2 [facility]; [facility] Work Phone: Comment on above: PATIENT NOT FASTINGP ERFORMED BY: CB [facility] Spdchf3165 [address] RoadDublin [place] [id number] Protein [Mass/Vol] 7.2 g/dL Normal 6.0-8.5 [facility]; [facility] Work Phone: Comment on above: PATIENT NOT FASTINGP ERFORMED BY: CB [facility] Ujtegr9460 [address] RoadDublin [place] [id number] Sodium [Moles/Vol] 140 mmol/L Normal 134-144 [facility]; [facility] Work Phone: Comment on above: PATIENT NOT FASTINGP ERFORMED BY: CB [facility] Knrlvz8827 [address] RoadDublin [place] [id number] Urea nitrogen [Mass/Vol] 14 mg/dL Normal 6-24 [facility]; [facility] Work Phone: Comment on above: PATIENT NOT FASTINGP ERFORMED BY: FATMATA [facility] Huiidk2123 [address] [facility] [id number] Urea nitrogen/Creatinine [Mass ratio] 11 mg/mg Normal 9-20 [facility]; [facility] Work Phone: Comment on above: PATIENT NOT FASTINGP ERFORMED BY: [facility] Felaga4891 [facility] [id number] TSH ([id number])Ordered By: Mo becerra Transportation Consultant on 09-17-2020 TSH Qn 4.310 {uIU/mL} Normal 0.450-4.500 [facility]; [facility] Work Phone: Comment on above: PATIENT NOT FASTINGP ERFORMED BY: [facility] Vkkebd9233 [address] [facility]ria AnalyticsAt[facility] [id number] CT Brain wo contraston 07-02 CT Brain wo contrast CT scan head: 07/02/2020. CLINICAL INFORMATION: Closed head trauma. FINDINGS: CT scans of the head were performed at 3 mm slice thickness. No prior studies for comparison. The ventricular system and cortical sulci are within normal limits. There is no evidence of hemorrhage or edema. No areas of mass effect or infarct are seen. There is mucosal thickening in the ethmoid air cells bilaterally. The paranasal sinuses are otherwise well aerated. IMPRESSION: No acute process. Incidental ethmoid sinusitis. Report Dictated on Authenticated by: Andreas Phillips On: 07/02/2020 19:34 Read by: ANDREAS PHILLIPS MD Date: 07/02/2020 19:34 Normal [facility] CBC with Diffon 08-30-2019 Basophils (Bld) [#/Vol] 0.1 x(10)3/cumm Normal 0.0-0.1 [facility] Comment on above: Performed By: #### C BCDIELÍAS #### [facility] [address] [place] [address] 09949 Basophils/100 WBC (Bld) 1.0 % Normal 0.0-1.0 [facility] Comment on above: Performed By: #### C BCDIELÍAS #### [facility] [address] [place] [address] 80064 Eosinophils (Bld) [#/Vol] 0.3 x(10)3/cumm Normal 0.0-0.4 [facility] Comment on above: Performed By: #### C BCDIFF #### [facility] [address] [place] [address] 69339 Eosinophils/100 WBC (Bld) 4.7 % Normal 0.0-6.1 [facility] Comment on above: Performed By: #### C BCDIFF #### [facility] [address] [place] [address] 58519 Erythrocyte distribution width (RBC) [Ratio] 12.9 % Normal 11.1-15.3 [facility] Comment on above: Performed By: #### C BCDIFF #### [facility] [address] [place] [address] 06424 Hematocrit (Bld) [Volume fraction] 45.8 % Normal 37.6-50.6 [facility] Comment on above: Performed By: #### C BCDIFF #### [facility] [address] [place] [address] 90000 Hemoglobin (Bld) [Mass/Vol] 15.7 g/dL Normal 12.9-17.5 [facility] Comment on above: Performed By: #### C BCDIFF #### [facility] [address] [place] [address] 79542 Lymphocytes (Bld) [#/Vol] 2.0 x(10)3/cumm Normal 0.8-2.9 [facility] Comment on above: Performed By: #### C BCDIFF #### [facility] [address] [place] [address] 83748 Lymphocytes/100 WBC (Bld) 29.6 % Normal 12.2-42.6 [facility] Comment on above: Performed By: #### C BCDIFF #### [facility] [address] [place] [address] 92223 MCH (RBC) [Entitic mass] 31.3 pg Normal 27.2-33.6 [facility] Comment on above: Performed By: #### C BCDIFF #### [facility] [address] [place] [address] 81282 MCHC (RBC) [Mass/Vol] 34.2 g/dL Normal 32.9-35.3 [facility] Comment on above: Performed By: #### C BCDIFF #### [facility] [address] [place] [address] 14151 MCV (RBC) [Entitic vol] 91.6 fL Normal 81.3-96.7 [facility] Comment on above: Performed By: #### C BCDIFF #### [facility] [address] [place] [address] 30669 Monocytes (Bld) [#/Vol] 0.6 x(10)3/cumm Normal 0.2-0.8 [facility] Comment on above: Performed By: #### C BCDIFF #### [facility] [address] [place] [address] 35977 Monocytes/100 WBC (Bld) 8.9 % Normal 3.3-11.6 [facility] Comment on above: Performed By: #### C BCDIFF #### [facility] [address] [place] [address] 37285 Neutrophils (Bld) [#/Vol] 3.7 x(10)3/cumm Normal 1.3-7.4 [facility] Comment on above: Performed By: #### C BCDIFF #### [facility] [address] [place] [address] 08061 Neutrophils/100 WBC (Bld) 55.8 % Normal 44.9-78.8 [facility] Comment on above: Performed By: #### C BCDIFF #### [facility] [address] [place] [address] 04883 Platelet mean volume (Bld) [Entitic vol] 8.1 fL Normal 6.4-10.0 [facility] Comment on above: Performed By: #### C BCDIFF #### [facility] [address] [place] [address] 29564 Platelets (Bld) [#/Vol] 229 x(10)3/cumm Normal 138-367 [facility] Comment on above: Performed By: #### C BCDIFF #### [facility] [address] [place] [address] 22299 Plt Morph Normal [facility] Comment on above: Performed By: #### C BCDIFF #### [facility] [address] [place] [address] 86706 RBC (Bld) [#/Vol] 5.00 X(10)6/cumm Normal 4.20-5.80 [facility] Comment on above: Performed By: #### C BCDIFF #### [facility] [address] [place], [place] [phone] RBC Morph cont Normal [facility] Comment on above: Performed By: #### C BCDIFF #### [facility] [address] [place], [place] [address] RBC morphology finding Nom (Bld) Normal [facility] Comment on above: Performed By: #### C BCDIFF #### [facility] [address] [place] [address] 25695 WBC (Bld) [#/Vol] 6.6 x(10)3/cumm Normal 3.6-10.3 [facility] Comment on above: Performed By: #### C BCDIFF #### [facility] [address] [place] [address] 50605 WBC Morph Normal [facility] Comment on above: Performed By: #### C BCDIFF #### [facility] [address] [place], [place] [address] Comprehensive Metabolic Pane dileep 08-30-2019 Albumin [Mass/Vol] 3.6 g/dL Normal 3.4-5.0 [facility] Comment on above: Performed By: #### C MP #### [facility] [address] [place], [place] [address] ALP [Catalytic activity/Vol] 95 U/L Normal 45-117 [facility] Comment on above: Performed By: #### C MP #### [facility] [address] [place], [place] [address] ALT [Catalytic activity/Vol] 33 U/L Normal 12-78 [facility] Comment on above: Performed By: #### C MP #### [facility] [address] [place] [address] 65349 Anion gap [Moles/Vol] 4 mmol/L Low 5-10 [facility] Comment on above: Performed By: #### C MP #### [facility] [address] [place] [address] 78062 AST [Catalytic activity/Vol] 15 U/L Normal 15-37 [facility] Comment on above: Performed By: #### C MP #### [facility] [address] [place] [address] 83697 Bili, Total 0.3 mg/dL Normal 0.2-1.0 [facility] Comment on above: Performed By: #### C MP #### [facility] [address] [place] [address] 55363 Calcium [Mass/Vol] 9.3 mg/dL Normal 8.5-10.1 [facility] Comment on above: Performed By: #### C MP #### [facility] [address] [place] [address] 54258 Chloride [Moles/Vol] 104 mmol/L Normal 98-107 [facility] Comment on above: Performed By: #### C MP #### [facility] [address] [place] [address] 71004 CO2 [Moles/Vol] 28 mmol/L Normal 21-32 [facility] Comment on above: Performed By: #### C MP #### [facility] [address] [place] [address] 77392 Creatinine [Mass/Vol] 0.99 mg/dL Normal 0.60-1.30 [facility] Comment on above: Performed By: #### C MP #### [facility] [address] [place] [address] 98261 eGFR -Amer >60 Normal >=60 [facility] Comment on above: Performed By: #### C MP #### [facility] [address] [place] [address] 03294 GFR/1.73 sq M predicted among non-blacks MDRD (S/P/Bld) [Vol rate/Area] mL/min/{1.73_m2} Normal >=60 [facility] Comment on above: Performed By: #### C MP #### [facility] [address] [place] [address] 47999 Glucose [Mass/Vol] 121 mg/dL High 74-106 [facility] Comment on above: Performed By: #### C MP #### [facility] [address] [place] [address] 12214 Potassium [Moles/Vol] 3.6 mmol/L Normal 3.5-5.1 [facility] Comment on above: Performed By: #### C MP #### [facility] [address] [place] [address] 55884 Prot Total 7.2 gm/dL Normal 6.4-8.2 [facility] Comment on above: Performed By: #### C MP #### [facility] [address] [place] [address] 25983 Sodium [Moles/Vol] 136 mmol/L Normal 136-145 [facility] Comment on above: Performed By: #### C MP #### [facility] [address] [place] [address] 53407 Urea nitrogen [Mass/Vol] 21 mg/dL High 7-18 [facility] Comment on above: Performed By: #### C MP #### [facility] [address] [place] [address] Abdomen Pelvis Wo Contras ton 05-23-2019 Patient Name: SHERLEY RICHARDS ---CT--- Exam Date/Time 05/23/2019 13:38:[address] Abdomen/Pelvis (No PO, No IV) Ordering Physician DO SPRING EUGENE F. Accession Number [id number] CPT4 Codes 08021 (CT Abdomen/Pelvis (No PO, No IV)) Reason For Exam RLQ abdominal pain Report CT ABDOMEN AND PELVIS WITHOUT IV CONTRAST CLINICAL INDICATION: right lower quadrant pain TECHNIQUE: Multidetector spiral transaxial sequence was performed through the abdomen and pelvis without intravenous contrast. Images were reconstructed at 3 mm slice width at 3 mm interval. COMPARISON: 04/16/2019 FINDINGS: Exam quality: This examination is limited for the evaluation of solid organs and vascular structures due to the lack of intravenous contrast. Chest base: Normal. Liver: Normal size and contour. No identifiable lesion. Biliary tree: Normal caliber. The gallbladder is nondistended. Spleen: Normal. Adrenals: Stable left adrenal adenoma.. Pancreas: Normal. Kidneys: No contour abnormality or focal renal lesion. Renal collecting systems: No calculi, hydronephrosis or ureteral dilatation. Free fluid: None. Retroperitoneal/mesent paulo lymphadenopathy: None. Bowel: Postsurgical changes are seen of prior sigmoidectomy with a colorectal anastomosis. There is mild amount of fat stranding surrounding the anastomosis. Mild diverticular seen in the splenic flexure of the colon. No evidence of adjacent inflammation to suggest acute diverticulitis. Postsurgical changes are seen near the cecum likely related to prior appendectomy. The bowel is normal in caliber. Aorta: Atherosclerotic calcifications are seen in the aorta and its branches. The aorta is normal in caliber. Abdominal wall: Postsurgical changes are seen, including interval reversal of the previously seen left-sided colostomy. Some subcutaneous fat stranding is seen in the area of the colostomy. There is diastases of the rectus abdominis muscles with protrusion of bowel anteriorly. Pelvic organs/viscera: No mass. There is mild presacral soft tissue thickening. There is a mild degree of subcutaneous fat stranding overlying the right lower quadrant. Bladder: No calculi or filling defects. Pelvic lymphadenopathy: None. Osseous structures: Mild degenerative change of the visualized spine is noted. IMPRESSION: 1. Postsurgical changes with interval colostomy reversal. Some fat stranding is seen surrounding the colorectal anastomosis and at the site of the prior colostomy, which could be infectious/inflammator y or could be related to posttreatment change. 2. Presacral soft tissue thickening, likely due to posttreatment change. 3. Mild right lower quadrant subcutaneous fat stranding. This could be infectious or inflammatory or could be posttraumatic. 4. Colonic diverticulosis. 5. Stable left adrenal adenoma. Report Dictated on Workstation: [id number] --- Final --- Dictated: 05/23/2019 1:39 pm Dictating Physician: MD ÁLVAREZ NICHOLAS Signed Date and Time: 05/23/2019 1:50 pm Signed by: MD ÁLVAREZ NICHOLAS Transcribed Date and Time: 05/23/2019 1:39 [facility], [place] Kul[place]inder, [place]митрийa Incoming Radiology Results From [facility] - 05/23/2019 1:51 PM EST Patient Name: SHERLEY RICHARDS ---CT--- Exam Date/Time 05/23/2019 13:38:[address] Abdomen/Pelvis (No PO, No IV) Ordering Physician DO SPRING EUGENE F. Accession Number [id number] CPT4 Codes 29873 (CT Abdomen/Pelvis (No PO, No IV)) Reason For Exam RLQ abdominal pain Report CT ABDOMEN AND PELVIS WITHOUT IV CONTRAST CLINICAL INDICATION: right lower quadrant pain TECHNIQUE: Multidetector spiral transaxial sequence was performed through the abdomen and pelvis without intravenous contrast. Images were reconstructed at 3 mm slice width at 3 mm interval. COMPARISON: 04/16/2019 FINDINGS: Exam quality: This examination is limited for the evaluation of solid organs and vascular structures due to the lack of intravenous contrast. Chest base: Normal. Liver: Normal size and contour. No identifiable lesion. Biliary tree: Normal caliber. The gallbladder is nondistended. Spleen: Normal. Adrenals: Stable left adrenal adenoma.. Pancreas: Normal. Kidneys: No contour abnormality or focal renal lesion. Renal collecting systems: No calculi, hydronephrosis or ureteral dilatation. Free fluid: None. Retroperitoneal/mesent paulo lymphadenopathy: None. Bowel: Postsurgical changes are seen of prior sigmoidectomy with a colorectal anastomosis. There is mild amount of fat stranding surrounding the anastomosis. Mild diverticular seen in the splenic flexure of the colon. No evidence of adjacent inflammation to suggest acute diverticulitis. Postsurgical changes are seen near the cecum likely related to prior appendectomy. The bowel is normal in caliber. Aorta: Atherosclerotic calcifications are seen in the aorta and its branches. The aorta is normal in caliber. Abdominal wall: Postsurgical changes are seen, including interval reversal of the previously seen left-sided colostomy. Some subcutaneous fat stranding is seen in the area of the colostomy. There is diastases of the rectus abdominis muscles with protrusion of bowel anteriorly. Pelvic organs/viscera: No mass. There is mild presacral soft tissue thickening. There is a mild degree of subcutaneous fat stranding overlying the right lower quadrant. Bladder: No calculi or filling defects. Pelvic lymphadenopathy: None. Osseous structures: Mild degenerative change of the visualized spine is noted. IMPRESSION: 1. Postsurgical changes with interval colostomy reversal. Some fat stranding is seen surrounding the colorectal anastomosis and at the site of the prior colostomy, which could be infectious/inflammator y or could be related to posttreatment change. 2. Presacral soft tissue thickening, likely due to posttreatment change. 3. Mild right lower quadrant subcutaneous fat stranding. This could be infectious or inflammatory or could be posttraumatic. 4. Colonic diverticulosis. 5. Stable left adrenal adenoma. Report Dictated on Workstation: [id number] --- Final --- Dictated: 05/23/2019 1:39 pm Dictating Physician: MD ÁLVAREZ NICHOLAS Signed Date and Time: 05/23/2019 1:50 pm Signed by: MD ÁLVAREZ NICHOLAS Transcribed Date and Time: 05/23/2019 1:39 [facility] Surgical Pathology Depar tmenton 05-14-2019 [facility] Surgical Pathology Department Name SHERLEY RICHARDS Pathologist: AGNIESZKA TRUONG M.D. Date of Procedure: 05/14/2019 Date Received: 05/15/2019 Date Reported 05/19/2019 Submitting Physician: SERVANDO FELICIANO Location: [facility] Other External # [id number] FINAL DIAGNOSIS A. RECTAL STUMP: --SEGMENT OF RECTUM WITH FOREIGN BODY GIANT CELL REACTIONS, CONSISTENT WITH PRIOR PROCEDURE SITE --FOCAL REACTIVE CHANGES B. SIGMOID (OPEN END PROXIMAL), SEGMENTAL RESECTION: --SEGMENT OF COLON WITH DIVERTICULOSIS --REACTIVE LYMPH NODE Electronically Signed Out By AGNIESZKA TRUONG M.D./[facility] By the signature on this report, the individual or group listed as making the Final Interpretation/Diagnos is certifies that they have reviewed this case. Clinical History: diverticulitis Specimens Submitted As: A: RECTAL STUMP B: SIGMOID (OPEN END PROXIMAL) Other Case Numbers [id number] Gross Description: A: Received in formalin, labeled with the patient's name and hospital number and "rectal stump", is a stoma surrounded by a ring of skin measuring 1.7 x 1.2 cm. The mucosal surface is smooth and glistening. The segment of attached bowel measures 3.3 cm in length and 4.5 cm in diameter. Staple lines are present. The mucosa demonstrates normal appearing mucosal folds. The wall measures 1.3 cm in thickness. Additionally received is a segments of colon with a length of 2.0 cm and a diameter of 2.7 cm. Staple lines are present. The mucosal surface is unremarkable with a wall thickness of up to 0.8 cm. The specimen is sectioned and sales representative sales manager sections are submitted in 3 cassettes. CJN B: Received in formalin, labeled with the patient's name and hospital number and "sigmoid opened end proximal", is an un-oriented segment of colon with attached mesentery and fibrofatty tissue measuring 6.8 cm in length and 2.2 cm in diameter. The serosal surface is thickened, pink-roberts, and hyperemic. The bowel wall demonstrates irregular diffuse thickening, up to 0.7 cm. A stricture is not present. Multiple diverticula are present, ranging from 0.7 cm to 0.9 cm, one of which appear perforated. The process does not extend to the lines of resection. Polyps are not present. The attached mesentery is unremarkable. Clinical Operations Consultant sections are submitted in 4 cassettes. DENIZ waller/05/15/2019 Normal [facility] Comment on above: Performed By: #### [facility] #### [facility] Surgical Pathology Department [id number] [facility] [id number] CT ABDOMEN W WO CONTRAST Add itional Contrast? Noneon 04-16-2019 Patient Name: SHERLEY RICHARDS ---CT--- Exam Date/Time 04/16/2019 09:06:[address] Abdomen w/ + w/o Contrast Ordering Physician [id number] -LOUISE WOOD Accession Number [id number] CPT4 Codes 59501 (), Q9967 (CT ISOVUE 370MG/[id number] L&1) Reason For Exam ADRENAL INCIDENTALOMA Report CT ABDOMEN WITHOUT AND WITH CONTRAST Indication: Adrenal nodule Scan Parameters: Multidetector spiral transaxial sequence was performed through the abdomen initially without contrast and again during the intravenous infusion of 75 mL nonionic contrast media followed by a delayed sequence. Comparison: None. FINDINGS: Chest base: Normal. Liver: Normal size and contour. Multiple small hypodensities are seen, too small to characterize but probably represent cysts.. Biliary tree: Normal caliber. The gallbladder is nondistended. Spleen: Normal. Adrenals: The right adrenal gland is normal. There is a left adrenal nodule measuring 2.8 x 2.0 cm. The Hounsfield unit values are -13 on the unenhanced series, +37 on the post-contrast series and -12 on the delayed post- contrast series. This equates to an absolute washout of 98%. Pancreas: Normal. Kidneys: Symmetric contrast enhancement without evidence of hydronephrosis. No focal renal lesion is identified. Free fluid: None. Lymphadenopathy: None. Aorta: Atherosclerotic calcifications are seen in the aorta and its branches. The aorta is normal in caliber. Bowel: No dilatation is noted. Postsurgical changes are present with a left-sided colostomy. Colonic diverticula are present in the distal colon, but without evidence of diverticulitis. Osseous structures: Very mild degenerative changes are present in the visualized spine. IMPRESSION: 1. The left adrenal nodule is consistent with an adenoma. If the patient has clinical signs or symptoms of adrenal hyperfunction, consider biochemical evaluation. 2. Postsurgical changes in the colon. Colonic diverticulosis. Report Dictated on --- Final --- Dictating Physician: MD ÁLVAREZ NICHOLAS Signed Date and Time: 04/16/2019 9:30 am Signed by: MD ÁLVAREZ NICHOLAS Transcribed Date and Time: 04/16/2019 9:31 [facility], [place], [employer] Incoming Radiology Results From [facility] - 04/16/2019 10:33 AM EDT Patient Name: SHERLEY RICHARDS ---CT--- Exam Date/Time 04/16/2019 09:06:[address] Abdomen w/ + w/o Contrast Ordering Physician [id number] -LOUISE WOOD Accession Number [id number] CPT4 Codes 45237 (), Q9967 (CT ISOVUE 370MG/ML&[id number] L&1) Reason For Exam ADRENAL INCIDENTALOMA Report CT ABDOMEN WITHOUT AND WITH CONTRAST Indication: Adrenal nodule Scan Parameters: Multidetector spiral transaxial sequence was performed through the abdomen initially without contrast and again during the intravenous infusion of 75 mL nonionic contrast media followed by a delayed sequence. Comparison: None. FINDINGS: Chest base: Normal. Liver: Normal size and contour. Multiple small hypodensities are seen, too small to characterize but probably represent cysts.. Biliary tree: Normal caliber. The gallbladder is nondistended. Spleen: Normal. Adrenals: The right adrenal gland is normal. There is a left adrenal nodule measuring 2.8 x 2.0 cm. The Hounsfield unit values are -13 on the unenhanced series, +37 on the post-contrast series and -12 on the delayed post- contrast series. This equates to an absolute washout of 98%. Pancreas: Normal. Kidneys: Symmetric contrast enhancement without evidence of hydronephrosis. No focal renal lesion is identified. Free fluid: None. Lymphadenopathy: None. Aorta: Atherosclerotic calcifications are seen in the aorta and its branches. The aorta is normal in caliber. Bowel: No dilatation is noted. Postsurgical changes are present with a left-sided colostomy. Colonic diverticula are present in the distal colon, but without evidence of diverticulitis. Osseous structures: Very mild degenerative changes are present in the visualized spine. IMPRESSION: 1. The left adrenal nodule is consistent with an adenoma. If the patient has clinical signs or symptoms of adrenal hyperfunction, consider biochemical evaluation. 2. Postsurgical changes in the colon. Colonic diverticulosis. Report Dictated on --- Final --- Dictating Physician: MD ÁLVAREZ NICHOLAS Signed Date and Time: 04/16/2019 9:30 am Signed by: MD ÁLVAREZ NICHOLAS Transcribed Date and Time: 04/16/2019 9:31 [place], [place] Cortisol Totalon 04-16-2019 Cortisol 0.9 ug/dL [place], [place] Comment on above: Before 10am 4.5-22.7 ug/dL After 5pm 1.7-14.1 ug/dL Test Performed by [facility], [address] [place] [id number] [place], [place] Surgical Tissue Examon 03-23 Surgical Tissue Exam Test performed at [place] [address] NAME: SHERLEY RICHARDS REQUESTING: SERVANDO FELICIANO M.D. FINAL DIAGNOSIS: A) COLON, 25 CM FROM ANAL VERGE, BIOPSY - FOCAL FEATURES SUGGESTIVE OF SESSILE SERRATED POLYP. B) COLON, DISTAL ASCENDING/HEPATIC FLEXURE, BIOPSY - TUBULAR ADENOMA. C) COLON, 35 CM FROM STOMA, BIOPSY - SESSILE SERRATED POLYP. D) COLON, 10 CM FROM STOMA, BIOPSY - FRAGMENTS OF TUBULAR ADENOMA. OPERATIVE PROCEDURE: Colonoscopy CLINICAL INFORMATION: Diverticulitis [K57.92] GROSS DESCRIPTION: A) Biopsy 25 cm from anal verge Received in formalin labeled biopsy, 25 cm from anal verge are multiple lees soft segments of tissue aggregating to 0.3 x 0.2 x 0.1 cm. The specimens are totally submitted in formalin in one cassette. B) Distal ascending/hepatic flexure polyp Received in formalin labeled distal ascending hepatic flexure polyp are multiple lees soft segments of tissue aggregating to 0.8 x 0.2 x 0.1 cm. The specimens are totally submitted in formalin in one cassette. C) Polyp 35 cm from stoma Received in formalin labeled polyps 35 cm from stoma, are multiple lees soft segments of tissue aggregating to 0.5 x 0.3 x 0.1 cm. The specimens are totally submitted in formalin in one cassette. D) Polyp 10 cm from stoma Received in formalin labeled polyp, 10 cm from stoma, are multiple lees soft segments of tissue aggregating to 0.8 x 0.2 x 0.1 cm. The specimens are totally submitted in formalin in one cassette. KVB:akin [place] M.D. PATHOLOGIST (Electronic signature on file) Signed out: 2019 18:00 PRINTED: 2019 Page 1 of 1 Normal [facility] Comment on above: Performed By: #### L CK #### [place] [address] Basic Panelon 12-15-2018 Creatinine [Mass/Vol] 1.02 mg/dL Normal 0.67-1.17 [facility] Comment on above: Performed By: #### L CK #### [facility] [address] [place], [place] [address] Anion gap [Moles/Vol] 11 mmol/L Normal 8-16 [facility] Comment on above: Performed By: #### L CK #### [facility] [address] [place], [place] [address] CO2 [Moles/Vol] 24 mmol/L Normal 21-32 [facility] Comment on above: Performed By: #### L CK #### [facility] [address] [place], [place] [address] Urea nitrogen [Mass/Vol] 9 mg/dL Normal 7-18 [facility] Comment on above: Performed By: #### L CK #### [facility] [address] [place], [place] [address] Calcium [Mass/Vol] 8.7 mg/dL Normal 8.5-10.1 [facility] Comment on above: Performed By: #### L CK #### [facility] [address] [place], [place] [address] Glucose [Mass/Vol] 93 mg/dL Normal 70-99 [facility] Comment on above: Performed By: #### L CK #### [facility] [address] [place], [place] [address] Chloride [Moles/Vol] 109 mmol/L High 98-107 [facility] Comment on above: Performed By: #### L CK #### [address] [address] Potassium [Moles/Vol] 3.7 mmol/L Normal 3.5-5.1 [facility] Comment on above: Performed By: #### L CK #### [facility] [address] [place], [place] [address] Sodium [Moles/Vol] 140 mmol/L Normal 136-145 [facility] Comment on above: Performed By: #### L CK #### [address] [address] Hemogram/Diffon 12-15-2018 Abs Immature Grans 0.46 thou/cmm High 0.00-0.05 [facility] Comment on above: Performed By: #### L CK #### [facility] [address] [place], [place] [address] Abs Neut (ANC) 6.21 thou/cmm High 1.78-5.38 [facility] Comment on above: Performed By: #### L CK #### [facility] [address] [place] [address] Abs. Baso 0.10 thou/cmm High 0.01-0.08 [facility] Comment on above: Performed By: #### L CK #### [facility] [address] [place] [address] Abs. [place] 0.94 thou/cmm High 0.30-0.82 [facility] Comment on above: Performed By: #### L CK #### [facility] [address] [place] [address] Basophils/100 WBC (Bld) 0.9 % Normal [facility] Comment on above: Performed By: #### L CK #### [facility] [address] [place] [address] Eosinophils (Bld) [#/Vol] 0.76 thou/cmm High 0.04-0.54 [facility] Comment on above: Performed By: #### L CK #### [facility] [address] [place], [place] [address] Eosinophils/100 WBC (Bld) 6.9 % Normal [facility] Comment on above: Performed By: #### L CK #### [facility] [address] [place] [address] Immature Grans 4.20 % Normal [facility] Comment on above: Performed By: #### L CK #### [facility] [address] [place], [place] [address] Lymphocytes (Bld) [#/Vol] 2.50 thou/cmm Normal 0.84-2.85 [facility] Comment on above: Performed By: #### L CK #### [facility] [address] [place], [place] [address] Lymphocytes/100 WBC (Bld) 22.8 % Normal [facility] Comment on above: Performed By: #### L CK #### [facility] [address] [place] [address] Monocytes/100 WBC (Bld) 8.6 % Normal [facility] Comment on above: Performed By: #### L CK #### [facility] [address] [place] [address] Seg Neutrophil 56.6 % Normal [facility] Comment on above: Performed By: #### L CK #### [facility] [address] [place] [address] Erythrocyte distribution width (RBC) [Ratio] 12.5 % Normal 11.6-14.4 [facility] Comment on above: Performed By: #### L CK #### [facility] [address] [place] [address] Hematocrit (Bld) [Volume fraction] 36.9 % Low 40.1-51.0 [facility] Comment on above: Performed By: #### L CK #### [facility] [address] [place] [address] Hemoglobin (Bld) [Mass/Vol] 12.0 g/dL Low 13.7-17.5 [facility] Comment on above: Performed By: #### L CK #### [facility] [address] [place] [address] MCH (RBC) [Entitic mass] 29.9 pg Normal 25.7-32.2 [facility] Comment on above: Performed By: #### L CK #### [facility] [address] [place] [address] MCHC (RBC) [Mass/Vol] 32.5 % Normal 32.3-36.5 [facility] Comment on above: Performed By: #### L CK #### [facility] [address] [place] [address] MCV (RBC) [Entitic vol] 91.8 fL Normal 83.2-95.6 [facility] Comment on above: Performed By: #### L CK #### [facility] [address] [place] [address] Platelet mean volume (Bld) [Entitic vol] 9.3 fL Normal 8.7-12.0 [facility] Comment on above: Performed By: #### L CK #### [facility] [address] [place] [address] Platelets (Bld) [#/Vol] 328 thou/cmm Normal 141-365 [facility] Comment on above: Performed By: #### L CK #### [place] [address] RBC (Bld) [#/Vol] 4.02 mil/cmm Low 4.63-6.08 [facility] Comment on above: Performed By: #### L CK #### [place] [address] RDW SD 42.0 fl Normal 36.1-45.8 [facility] Comment on above: Performed By: #### L CK #### [place] [address] WBC (Bld) [#/Vol] 10.98 thou/cmm High 4.23-9.07 [facility] Comment on above: Performed By: #### L CK #### [place] [address] MDRD GFRon 12-15-2018 GFR/1.73 sq M predicted among non-blacks MDRD (S/P/Bld) [Vol rate/Area] mL/min/{1.73_m2} Normal >60mL/min/1. 73m2 [facility] Comment on above: Result Comment: If t he patient is , multiply the result by 1.210. Performed By: #### L P14 #### [place] [address] Basic Panelon 12-14-2018 Creatinine [Mass/Vol] 0.90 mg/dL Normal 0.67-1.17 [facility] Comment on above: Performed By: #### L CK #### [place] [address] Anion gap [Moles/Vol] 10 mmol/L Normal 8-16 [facility] Comment on above: Performed By: #### L CK #### [facility] [address] [place], [place] [address] Calcium [Mass/Vol] 8.6 mg/dL Normal 8.5-10.1 [facility] Comment on above: Performed By: #### L CK #### [facility] [address] [place], [place] [address] CO2 [Moles/Vol] 23 mmol/L Normal 21-32 [facility] Comment on above: Performed By: #### L CK #### [facility] [address] [place] [address] Glucose [Mass/Vol] 106 mg/dL High 70-99 [facility] Comment on above: Performed By: #### L CK #### [facility] [address] [place] [address] Urea nitrogen [Mass/Vol] 10 mg/dL Normal 7-18 [facility] Comment on above: Performed By: #### L CK #### [facility] [address] [place] [address] Chloride [Moles/Vol] 108 mmol/L High 98-107 [facility] Comment on above: Performed By: #### L CK #### [facility] [address] [place] [address] Potassium [Moles/Vol] 3.6 mmol/L Normal 3.5-5.1 [facility] Comment on above: Performed By: #### L CK #### [facility] [address] [place] [address] Sodium [Moles/Vol] 137 mmol/L Normal 136-145 [facility] Comment on above: Performed By: #### L CK #### [facility] [address] [place] [address] Hemogram/Diffon 12-14-2018 Abs Immature Grans 0.29 thou/cmm High 0.00-0.05 [facility] Comment on above: Performed By: #### L CK #### [facility] [address] [place] [address] Abs Neut (ANC) 7.34 thou/cmm High 1.78-5.38 [facility] Comment on above: Performed By: #### L CK #### [facility] [address] [place], [place] [address] Abs. Baso 0.07 thou/cmm Normal 0.01-0.08 [facility] Comment on above: Performed By: #### L CK #### [facility] [address] [place], [place] [address] Abs. [place] 1.08 thou/cmm High 0.30-0.82 [facility] Comment on above: Performed By: #### L CK #### [facility] [address] [place], [place] [address] Basophils/100 WBC (Bld) 0.6 % Normal [facility] Comment on above: Performed By: #### L CK #### [facility] [address] [place], [place] [address] Eosinophils (Bld) [#/Vol] 0.72 thou/cmm High 0.04-0.54 [facility] Comment on above: Performed By: #### L CK #### [facility] [address] [place], [place] [address] Eosinophils/100 WBC (Bld) 6.2 % Normal [facility] Comment on above: Performed By: #### L CK #### [facility] [address] [place] [place], [place] [address] Immature Grans 2.50 % Normal [facility] Comment on above: Performed By: #### L CK #### [facility] [address] [place], [place] [address] Lymphocytes (Bld) [#/Vol] 2.19 thou/cmm Normal 0.84-2.85 [facility] Comment on above: Performed By: #### L CK #### [facility] [address] [place], [place] [address] Lymphocytes/100 WBC (Bld) 18.7 % Normal [facility] Comment on above: Performed By: #### L CK #### [facility] [address] [place], [place] [address] Monocytes/100 WBC (Bld) 9.2 % Normal [facility] Comment on above: Performed By: #### L CK #### [facility] 1 [place] [address] Seg Neutrophil 62.8 % Normal [facility] Comment on above: Performed By: #### L CK #### [facility] 1 [place] [address] Erythrocyte distribution width (RBC) [Ratio] 12.6 % Normal 11.6-14.4 [facility] Comment on above: Performed By: #### L CK #### [facility] 1 [place] [address] Hematocrit (Bld) [Volume fraction] 36.4 % Low 40.1-51.0 [facility] Comment on above: Performed By: #### L CK #### [facility] [address] [place] [address] Hemoglobin (Bld) [Mass/Vol] 11.9 g/dL Low 13.7-17.5 [facility] Comment on above: Performed By: #### L CK #### [facility] 1 [place] [address] MCH (RBC) [Entitic mass] 30.1 pg Normal 25.7-32.2 [facility] Comment on above: Performed By: #### L CK #### [facility] [address] [place] [address] MCHC (RBC) [Mass/Vol] 32.7 % Normal 32.3-36.5 [facility] Comment on above: Performed By: #### L CK #### [facility] [address] [place] [address] MCV (RBC) [Entitic vol] 92.2 fL Normal 83.2-95.6 [facility] Comment on above: Performed By: #### L CK #### [facility] 1 [place] [address] Platelet mean volume (Bld) [Entitic vol] 9.4 fL Normal 8.7-12.0 [facility] Comment on above: Performed By: #### L CK #### [facility] [address] [place] [address] Platelets (Bld) [#/Vol] 304 thou/cmm Normal 141-365 [facility] Comment on above: Performed By: #### L CK #### [facility] [address] [place] [address] RBC (Bld) [#/Vol] 3.95 mil/cmm Low 4.63-6.08 [facility] Comment on above: Performed By: #### L CK #### [place] [address] RDW SD 42.8 fl Normal 36.1-45.8 [facility] Comment on above: Performed By: #### L CK #### [facility] 1 [place] [address] WBC (Bld) [#/Vol] 11.69 thou/cmm High 4.23-9.07 [facility] Comment on above: Performed By: #### L CK #### [place] [address] Basic Panelon 12-13-2018 Creatinine [Mass/Vol] 0.91 mg/dL Normal 0.67-1.17 [facility] Comment on above: Performed By: #### L TRP #### [place] [address] Anion gap [Moles/Vol] 10 mmol/L Normal 8-16 [facility] Comment on above: Performed By: #### L TRP #### [place] [address] CO2 [Moles/Vol] 26 mmol/L Normal 21-32 [facility] Comment on above: Performed By: #### L TRP #### [place] [address] Urea nitrogen [Mass/Vol] 12 mg/dL Normal 7-18 [facility] Comment on above: Performed By: #### L TRP #### [place] [address] Calcium [Mass/Vol] 8.5 mg/dL Normal 8.5-10.1 [facility] Comment on above: Performed By: #### L TRP #### [facility] [address] [place] [address] Glucose [Mass/Vol] 113 mg/dL High 70-99 [facility] Comment on above: Performed By: #### L TRP #### [facility] [address] [place] [address] Chloride [Moles/Vol] 109 mmol/L High 98-107 [facility] Comment on above: Performed By: #### L TRP #### [facility] [address] [place] [address] Potassium [Moles/Vol] 3.3 mmol/L Low 3.5-5.1 [facility] Comment on above: Performed By: #### L TRP #### [facility] [address] [place] [address] Sodium [Moles/Vol] 142 mmol/L Normal 136-145 [facility] Comment on above: Performed By: #### L TRP #### [place] [address] Hemogram/Diffon 12-13-2018 Abs Immature Grans 0.10 thou/cmm High 0.00-0.05 [facility] Comment on above: Performed By: #### L TRP #### [place] [address] Abs Neut (ANC) 6.22 thou/cmm High 1.78-5.38 [facility] Comment on above: Performed By: #### L TRP #### [place] [address] Abs. Baso 0.06 thou/cmm Normal 0.01-0.08 [facility] Comment on above: Result Comment: Smea r scanned; tech agrees with automated differential Performed By: #### L TRP #### [place] [address] Abs. [place] 0.89 thou/cmm High 0.30-0.82 [facility] Comment on above: Performed By: #### L TRP #### [place] [address] Basophils/100 WBC (Bld) 0.6 % Normal [facility] Comment on above: Performed By: #### L TRP #### [facility] [address] [place], [place] [address] Eosinophils (Bld) [#/Vol] 0.60 thou/cmm High 0.04-0.54 [facility] Comment on above: Performed By: #### L TRP #### [facility] [address] [place], [place] [address] Eosinophils/100 WBC (Bld) 6.1 % Normal [facility] Comment on above: Performed By: #### L TRP #### [facility] [address] [place], [place] [address] Immature Grans 1.00 % Normal [facility] Comment on above: Performed By: #### L TRP #### [facility] [address] [place], [place] [address] Lymphocytes (Bld) [#/Vol] 1.99 thou/cmm Normal 0.84-2.85 [facility] Comment on above: Performed By: #### L TRP #### [facility] [address] [place], [place] [address] Lymphocytes/100 WBC (Bld) 20.2 % Normal [facility] Comment on above: Performed By: #### L TRP #### [facility] [address] [place], [place] [address] Monocytes/100 WBC (Bld) 9.0 % Normal [facility] Comment on above: Performed By: #### L TRP #### [facility] [address] [place], [place] [address] Seg Neutrophil 63.1 % Normal [facility] Comment on above: Performed By: #### L TRP #### [address] [address] Erythrocyte distribution width (RBC) [Ratio] 12.7 % Normal 11.6-14.4 [facility] Comment on above: Performed By: #### L TRP #### [address] [address] Hematocrit (Bld) [Volume fraction] 35.3 % Low 40.1-51.0 [facility] Comment on above: Performed By: #### L TRP #### [facility] [address] [place] [address] Hemoglobin (Bld) [Mass/Vol] 11.5 g/dL Low 13.7-17.5 [facility] Comment on above: Performed By: #### L TRP #### [facility] [address] [place] [address] MCH (RBC) [Entitic mass] 30.0 pg Normal 25.7-32.2 [facility] Comment on above: Performed By: #### L TRP #### [facility] [address] [place] [address] MCHC (RBC) [Mass/Vol] 32.6 % Normal 32.3-36.5 [facility] Comment on above: Performed By: #### L TRP #### [place] [address] MCV (RBC) [Entitic vol] 92.2 fL Normal 83.2-95.6 [facility] Comment on above: Performed By: #### L TRP #### [place] [address] Platelet mean volume (Bld) [Entitic vol] 9.3 fL Normal 8.7-12.0 [facility] Comment on above: Performed By: #### L TRP #### [place] [address] Platelets (Bld) [#/Vol] 274 thou/cmm Normal 141-365 [facility] Comment on above: Performed By: #### L TRP #### [facility] [address] [place] [address] RBC (Bld) [#/Vol] 3.83 mil/cmm Low 4.63-6.08 [facility] Comment on above: Performed By: #### L TRP #### [place] [address] RDW SD 42.3 fl Normal 36.1-45.8 [facility] Comment on above: Performed By: #### L TRP #### [facility] [address] [place], [place] [address] WBC (Bld) [#/Vol] 9.86 thou/cmm High 4.23-9.07 [facility] Comment on above: Performed By: #### L TRP #### [facility] [address] [place] [address] Basic Panelon 12-12-2018 Anion gap [Moles/Vol] 8 mmol/L Normal 8-16 [facility] Comment on above: Performed By: #### L TRP #### [facility] [address] [place] [address] Potassium [Moles/Vol] 4.9 mmol/L Normal 3.5-5.1 [facility] Comment on above: Result Comment: SPEC IMEN SLIGHTLY HEMOLYZED Performed By: #### L TRP #### [place] [address] Creatinine [Mass/Vol] 0.91 mg/dL Normal 0.67-1.17 [facility] Comment on above: Performed By: #### L TRP #### [facility] [address] [place] [address] CO2 [Moles/Vol] 30 mmol/L Normal 21-32 [facility] Comment on above: Performed By: #### L TRP #### [facility] [address] [place] [address] Glucose [Mass/Vol] 100 mg/dL High 70-99 [facility] Comment on above: Performed By: #### L TRP #### [facility] [address] [place] [address] Urea nitrogen [Mass/Vol] 17 mg/dL Normal 7-18 [facility] Comment on above: Performed By: #### L TRP #### [facility] [address] [place] [address] Calcium [Mass/Vol] 8.2 mg/dL Low 8.5-10.1 [facility] Comment on above: Performed By: #### L TRP #### [facility] [address] [place] [address] Chloride [Moles/Vol] 107 mmol/L Normal 98-107 [facility] Comment on above: Performed By: #### L TRP #### [facility] [address] [place] [address] Sodium [Moles/Vol] 140 mmol/L Normal 136-145 [facility] Comment on above: Performed By: #### L TRP #### [place] [address] Hemogramon 12-12-2018 Erythrocyte distribution width (RBC) [Ratio] 13.0 % Normal 11.6-14.4 [facility] Comment on above: Performed By: #### L TRP #### [place] [address] Hematocrit (Bld) [Volume fraction] 35.3 % Low 40.1-51.0 [facility] Comment on above: Performed By: #### L TRP #### [place] [address] Hemoglobin (Bld) [Mass/Vol] 11.4 g/dL Low 13.7-17.5 [facility] Comment on above: Performed By: #### L TRP #### [place] [address] MCH (RBC) [Entitic mass] 30.5 pg Normal 25.7-32.2 [facility] Comment on above: Performed By: #### L TRP #### [place] [address] MCHC (RBC) [Mass/Vol] 32.3 % Normal 32.3-36.5 [facility] Comment on above: Performed By: #### L TRP #### [place] [address] MCV (RBC) [Entitic vol] 94.4 fL Normal 83.2-95.6 [facility] Comment on above: Performed By: #### L TRP #### [place] [address] Platelet mean volume (Bld) [Entitic vol] 9.9 fL Normal 8.7-12.0 [facility] Comment on above: Performed By: #### L TRP #### [facility] [address] [place], [place] [address] Platelets (Bld) [#/Vol] 234 thou/cmm Normal 141-365 [facility] Comment on above: Performed By: #### L TRP #### [facility] [address] [place] [address] RBC (Bld) [#/Vol] 3.74 mil/cmm Low 4.63-6.08 [facility] Comment on above: Performed By: #### L TRP #### [facility] [address] [place] [address] RDW SD 45.0 fl Normal 36.1-45.8 [facility] Comment on above: Performed By: #### L TRP #### [facility] [address] [place] [address] WBC (Bld) [#/Vol] 12.18 thou/cmm High 4.23-9.07 [facility] Comment on above: Performed By: #### L TRP #### [facility] [address] [place] [address] Magnesium Bloodon 12-12-2018 Magnesium [Mass/Vol] 2.5 mg/dL Normal 1.6-2.6 [facility] Comment on above: Performed By: #### L TRP #### [facility] [address] [place] [address] Phosphorus Bloodon 9 Phosphate [Mass/Vol] 2.9 mg/dL Normal 2.5-4.9 [facility] Comment on above: Performed By: #### L TRP #### [facility] [address] [place] [address] Basic Panelon 12-11-2018 Creatinine [Mass/Vol] 1.01 mg/dL Normal 0.67-1.17 [facility] Comment on above: Performed By: #### L TRP #### [facility] [address] [place] [address] Anion gap [Moles/Vol] 11 mmol/L Normal 8-16 [facility] Comment on above: Performed By: #### L TRP #### [facility] [address] [place], [place] [address] CO2 [Moles/Vol] 25 mmol/L Normal 21-32 [facility] Comment on above: Performed By: #### L TRP #### [facility] [address] [place], [place] [address] Glucose [Mass/Vol] 135 mg/dL High 70-99 [facility] Comment on above: Performed By: #### L TRP #### [facility] [address] [place], [place] [address] Urea nitrogen [Mass/Vol] 15 mg/dL Normal 7-18 [facility] Comment on above: Performed By: #### L TRP #### [facility] [address] [place] [address] Calcium [Mass/Vol] 8.6 mg/dL Normal 8.5-10.1 [facility] Comment on above: Performed By: #### L TRP #### [facility] [address] [place] [address] Chloride [Moles/Vol] 108 mmol/L High 98-107 [facility] Comment on above: Performed By: #### L TRP #### [facility] [address] [place] [address] Potassium [Moles/Vol] 3.9 mmol/L Normal 3.5-5.1 [facility] Comment on above: Performed By: #### L TRP #### [facility] [address] [place] [address] Sodium [Moles/Vol] 140 mmol/L Normal 136-145 [facility] Comment on above: Performed By: #### L TRP #### [facility] [address] [place] [address] Hemogramon 12-11-2018 Erythrocyte distribution width (RBC) [Ratio] 12.8 % Normal 11.6-14.4 [facility] Comment on above: Performed By: #### L P14 #### [address] [address] Hematocrit (Bld) [Volume fraction] 41.4 % Normal 40.1-51.0 [facility] Comment on above: Performed By: #### L P14 #### [facility] [address] [place] [address] Hemoglobin (Bld) [Mass/Vol] 13.1 g/dL Low 13.7-17.5 [facility] Comment on above: Performed By: #### L P14 #### [facility] [address] [place] [address] MCH (RBC) [Entitic mass] 30.2 pg Normal 25.7-32.2 [facility] Comment on above: Performed By: #### L P14 #### [facility] [address] [place] [address] MCHC (RBC) [Mass/Vol] 31.6 % Low 32.3-36.5 [facility] Comment on above: Performed By: #### L P14 #### [place] [address] MCV (RBC) [Entitic vol] 95.4 fL Normal 83.2-95.6 [facility] Comment on above: Performed By: #### L P14 #### [facility] [address] [place] [address] Platelet mean volume (Bld) [Entitic vol] 9.9 fL Normal 8.7-12.0 [facility] Comment on above: Performed By: #### L P14 #### [place] [address] Platelets (Bld) [#/Vol] 257 thou/cmm Normal 141-365 [facility] Comment on above: Performed By: #### L P14 #### [place] [address] RBC (Bld) [#/Vol] 4.34 mil/cmm Low 4.63-6.08 [facility] Comment on above: Performed By: #### L P14 #### [facility] [address] [place] [address] RDW SD 45.1 fl Normal 36.1-45.8 [facility] Comment on above: Performed By: #### L P14 #### [place] [id number] WBC (Bld) [#/Vol] 16.75 thou/cmm High 4.23-9.07 [facility] Comment on above: Performed By: #### L P14 #### [facility] [address] [place], [place] [address] Magnesium Bloodon 12-11-2018 Magnesium [Mass/Vol] 2.5 mg/dL Normal 1.6-2.6 [facility] Comment on above: Performed By: #### L TRP #### [facility] [address] [place], [place] [address] Phosphorus Bloodon 9 Phosphate [Mass/Vol] 2.3 mg/dL Low 2.5-4.9 [facility] Comment on above: Performed By: #### L TRP #### [facility] [address] [place] [address] Basic Panelon 12-10-2018 Creatinine [Mass/Vol] 1.14 mg/dL Normal 0.67-1.17 [facility] Comment on above: Performed By: #### L P14 #### [facility] [address] [place], [place] [address] Anion gap [Moles/Vol] 10 mmol/L Normal 8-16 [facility] Comment on above: Performed By: #### L P14 #### [address] [address] CO2 [Moles/Vol] 27 mmol/L Normal 21-32 [facility] Comment on above: Performed By: #### L P14 #### [facility] [address] [place], [place] [address] Glucose [Mass/Vol] 129 mg/dL High 70-99 [facility] Comment on above: Performed By: #### L P14 #### [facility] [address] [place] [address] Urea nitrogen [Mass/Vol] 14 mg/dL Normal 7-18 [facility] Comment on above: Performed By: #### L P14 #### [address] [address] Calcium [Mass/Vol] 8.4 mg/dL Low 8.5-10.1 [facility] Comment on above: Performed By: #### L P14 #### [facility] [address] [place] [address] Chloride [Moles/Vol] 104 mmol/L Normal 98-107 [facility] Comment on above: Performed By: #### L P14 #### [facility] [address] [place] [address] Potassium [Moles/Vol] 4.0 mmol/L Normal 3.5-5.1 [facility] Comment on above: Performed By: #### L P14 #### [facility] [address] [place] [address] Sodium [Moles/Vol] 137 mmol/L Normal 136-145 [facility] Comment on above: Performed By: #### L P14 #### [place] [address] Cult Bloodon 12-10-2018 Cult Blood Test performed at [facility] No growth Normal [facility] Comment on above: Performed By: #### L P14 #### [place] [address] Cult Urineon 12-10-2018 Cult Urine Test performed at [facility] No growth Normal [facility] Comment on above: Performed By: #### L TRP #### [place] [address] Hemogram/Diffon 12-10-2018 Abs Immature Grans 0.06 thou/cmm High 0.00-0.05 [facility] Comment on above: Performed By: #### L P14 #### [facility] [address] [place] [address] Abs Neut (ANC) 12.97 thou/cmm High 1.78-5.38 [facility] Comment on above: Performed By: #### L P14 #### [facility] [address] [place] [address] Abs. Baso 0.03 thou/cmm Normal 0.01-0.08 [facility] Comment on above: Performed By: #### L P14 #### [address] [place], [place] [address] Abs. [place] 0.88 thou/cmm High 0.30-0.82 [facility] Comment on above: Performed By: #### L P14 #### [facility] [address] [place], [place] [address] Basophils/100 WBC (Bld) 0.2 % Normal [facility] Comment on above: Performed By: #### L P14 #### [facility] [address] [place], [place] [address] Eosinophils (Bld) [#/Vol] 0.00 thou/cmm Low 0.04-0.54 [facility] Comment on above: Performed By: #### L P14 #### [facility] [address] [place], [place] [address] Eosinophils/100 WBC (Bld) 0.0 % Normal [facility] Comment on above: Performed By: #### L P14 #### [facility] [address] [place] [address] Immature Grans 0.40 % Normal [facility] Comment on above: Performed By: #### L P14 #### [place] [address] Lymphocytes (Bld) [#/Vol] 0.80 thou/cmm Low 0.84-2.85 [facility] Comment on above: Performed By: #### L P14 #### [facility] [address] [place], [place] [address] Lymphocytes/100 WBC (Bld) 5.4 % Normal [facility] Comment on above: Performed By: #### L P14 #### [facility] [address] [place], [place] [address] Monocytes/100 WBC (Bld) 6.0 % Normal [facility] Comment on above: Performed By: #### L P14 #### [facility] [address] [place] [address] Seg Neutrophil 88.0 % Normal [facility] Comment on above: Performed By: #### L P14 #### [place] [address] Erythrocyte distribution width (RBC) [Ratio] 12.6 % Normal 11.6-14.4 [facility] Comment on above: Performed By: #### L P14 #### [facility] [address] [place] [address] Hematocrit (Bld) [Volume fraction] 42.0 % Normal 40.1-51.0 [facility] Comment on above: Performed By: #### L P14 #### [facility] [address] [place] [address] Hemoglobin (Bld) [Mass/Vol] 13.9 g/dL Normal 13.7-17.5 [facility] Comment on above: Performed By: #### L P14 #### [place] [address] MCH (RBC) [Entitic mass] 30.3 pg Normal 25.7-32.2 [facility] Comment on above: Performed By: #### L P14 #### [place] [address] MCHC (RBC) [Mass/Vol] 33.1 % Normal 32.3-36.5 [facility] Comment on above: Performed By: #### L P14 #### [place] [address] MCV (RBC) [Entitic vol] 91.7 fL Normal 83.2-95.6 [facility] Comment on above: Performed By: #### L P14 #### [place] [address] Platelet mean volume (Bld) [Entitic vol] 9.7 fL Normal 8.7-12.0 [facility] Comment on above: Performed By: #### L P14 #### [place] [address] Platelets (Bld) [#/Vol] 205 thou/cmm Normal 141-365 [facility] Comment on above: Performed By: #### L P14 #### [place] [address] RBC (Bld) [#/Vol] 4.58 mil/cmm Low 4.63-6.08 [facility] Comment on above: Performed By: #### L P14 #### [facility] [address] [place] [address] RDW SD 42.4 fl Normal 36.1-45.8 [facility] Comment on above: Performed By: #### L P14 #### [facility] [address] [place] [address] WBC (Bld) [#/Vol] 14.74 thou/cmm High 4.23-9.07 [facility] Comment on above: Performed By: #### L P14 #### [place] [address] Lactic Acidon 12-10-2018 Lactate [Moles/Vol] 1.5 mmol/L Normal 0.5-2.2 [facility] Comment on above: Performed By: #### L P14 #### [place] [address] Surgical Tissue Examon 12-10 Surgical Tissue Exam Test performed at [place] [address] NAME: SHERLEY RICHARDS REQUESTING: SERVANDO FELICIANO M.D. FINAL DIAGNOSIS: A) SIGMOID COLON RESECTION - DIVERTICULOSIS WITH DIVERTICULITIS, PERFORATION AND MESENTERIC ABSCESS FORMATION. B) APPENDECTOMY - MULTIPLE SUBMUCOSAL MESOTHELIAL INCLUSION CYSTS. SEROSAL ACUTE INFLAMMATION. OPERATIVE PROCEDURE: Exploratory laparotomy, bowel resection CLINICAL INFORMATION: Diverticulitis [K57.92] GROSS DESCRIPTION: A) Sigmoid resection Received in formalin labeled sigmoid resection is an unoriented segment of bowel measuring 12.0 cm in length. One end is arbitrarily inked blue and the opposing end is arbitrarily inked orange. The serosal surface is lees-pink to pink-red and dull in appearance. The surrounding fat displays areas of fibrinous exudate. The wall of the specimen ranges from 0.5 to 1.0 cm in greatest thickness. An elevated area of the mucosa is identified measuring 1.8 x 1.8 x 0.4 cm. It is located 3.5 cm from the orange-inked margin and 7.0 cm from the blue-inked margin. Upon sectioning, it displays a yellow cut surface. The remainder of the mucosal surface is lees-pink and slightly edematous. Upon sectioning, multiple diverticula are identified. An area consistent with a perforated diverticula is present and located 5.0 cm from the orange-inked margin and 6.5 cm from the blue-inked margin. The specimen is sectioned from the blue to the orange aspect. Tissue is submitted as follows: A1 - perpendicular blue margin; A2 - perpendicular orange margin; A3 - 0.6 cm; A4 - 6-11 cm; A5-A8 - area of elevated mucosa totally submitted; A9-A10 - sales representative sales manager sections of area consistent with perforated diverticula. B) Appendix Received in formalin labeled appendix is an appendix measuring 5.3 cm in length and 0.7 cm in greatest width. The line of resection is inked black. The serosal surface demonstrates a white firm nodular appearing area measuring 0.6 x 0.4 x 0.2 cm. This nodular area is located 1.0 cm from the black-inked line of resection. The remainder of the serosal surface is lees-pink and glistening. Upon sectioning, focal masses and lesions are not present. The nodular area and serosal surface is totally submitted. Clinical Operations Consultant sections are submitted in formalin in two cassettes (B2 - distal tip, totally submitted). KVB:[email or web address] JOHNSON M.D. (Electronic signature on file) Signed out: 12/14/2018 15:11 PRINTED: 12/14/2018 Page 1 of 1 Normal [facility] Comment on above: Performed By: #### L CK #### [address] [address] Amylase Bloodon 12-09-2018 Amylase [Catalytic activity/Vol] 41 U/L Normal 25-115 [facility] Comment on above: Performed By: #### L JACKIE #### [facility] [address] [place], [place] [address] CPKon 12-09-2018 CPK 85 U/L Normal 39-308 [facility] Comment on above: Performed By: #### L CK #### [facility] [address] [place], [place] [address] Comprehensive Panelon 2018 Albumin [Mass/Vol] 3.5 g/dL Normal 3.4-5.0 [facility] Comment on above: Performed By: #### L P14 #### [facility] [address] [place], [place] [address] ALP [Catalytic activity/Vol] 80 U/L Normal 46-116 [facility] Comment on above: Performed By: #### L P14 #### [facility] [address] [place], [place] [address] ALT-SGPT Blood 33 U/L Normal 14-63 [facility] Comment on above: Performed By: #### L P14 #### [facility] [address] [place] [address] Anion gap [Moles/Vol] 15 mmol/L Normal 8-20 [facility] Comment on above: Performed By: #### L P14 #### [facility] [address] [place] [address] AST-SGOT Blood 21 U/L Normal 15-37 [facility] Comment on above: Performed By: #### L P14 #### [facility] [address] [place] [address] Bilirubin Ql (U) 0.9 mg/dL Normal 0.2-1.0 [facility] Comment on above: Performed By: #### L P14 #### [facility] [address] [place] [address] Calcium [Mass/Vol] 9.2 mg/dL Normal 8.5-10.1 [facility] Comment on above: Performed By: #### L P14 #### [facility] [address] [place] [address] CO2 Blood 27 mEq/L Normal 21-32 [facility] Comment on above: Performed By: #### L P14 #### [facility] [address] [place], [place] [address] Creatinine [Mass/Vol] 1.26 mg/dL High 0.67-1.17 [facility] Comment on above: Performed By: #### L P14 #### [facility] [address] [place], [place] [address] Glucose [Mass/Vol] 181 mg/dL High 70-99 [facility] Comment on above: Performed By: #### L P14 #### [facility] [address] [place], [place] [address] Protein [Mass/Vol] 7.8 g/dL Normal 6.4-8.2 [facility] Comment on above: Performed By: #### L P14 #### [facility] [address] [place], [place] [address] Urea nitrogen [Mass/Vol] 16 mg/dL Normal 7-25 [facility] Comment on above: Performed By: #### L P14 #### [facility] [address] [place], [place] [address] Urea nitrogen/Creatinine [Mass ratio] 13 mg/mg Normal 10-20 [facility] Comment on above: Performed By: #### L P14 #### [facility] [address] [place], [place] [address] Chloride [Moles/Vol] 98 mmol/L Normal 98-109 [facility] Comment on above: Result Comment: Test ing performed on an Florian i-STAT. Performed By: #### L P14 #### [facility] [address] [place], [place] [address] Potassium [Moles/Vol] 3.8 mmol/L Normal 3.5-4.9 [facility] Comment on above: Result Comment: Test ing performed on an Florian i-STAT. Performed By: #### L P14 #### [facility] [address] [place], [place] [address] Sodium [Moles/Vol] 136 mmol/L Low 138-146 [facility] Comment on above: Result Comment: Test ing performed on an Florian i-STAT. Performed By: #### L P14 #### [facility] [address] [place], [place] [address] Cult Bloodon 12-09-2018 Cult Blood Test performed at [facility] +Gram stain bottle II: Gram negative bacilli No growth in other bottle. ORGANISM: *Anaerobic Gram Neg Bacilli (ID: 1) cultured in bottle II Further identified as Odoribacter splanchnicus Beta-lactamase positive Normal [facility] Comment on above: Performed By: #### L P14 #### [facility] [address] [place] [address] Cult Blood Test performed at [facility] +Gram stain bottle II: Gram negative bacilli No growth in other bottle. ORGANISM: *Anaerobic Gram Neg Bacilli (ID: 1) cultured in bottle II Further identified as Odoribacter splanchnicus For sensitivity report see Date/ Normal [facility] Comment on above: Performed By: #### L P14 #### [place] [address] Cult Urineon 12-09-2018 Cult Urine Test performed at [facility] No growth Normal [facility] Comment on above: Performed By: #### L P14 #### [place] [address] Hemogramon 12-09-2018 Erythrocyte distribution width (RBC) [Ratio] 12.9 % Normal 11.5-15.9 [facility] Comment on above: Performed By: #### L CBC #### [place] [address] Hematocrit (Bld) [Volume fraction] 46.8 % Normal 42.0-52.0 [facility] Comment on above: Performed By: #### L CBC #### [place] [address] Hemoglobin (Bld) [Mass/Vol] 15.5 g/dL Normal 14.0-18.0 [facility] Comment on above: Performed By: #### L CBC #### [place] [address] MCH (RBC) [Entitic mass] 30.7 pg Normal 27.0-31.0 [facility] Comment on above: Performed By: #### L CBC #### [place] [address] MCHC (RBC) [Mass/Vol] 33.1 % Normal 32.0-36.0 [facility] Comment on above: Performed By: #### L CBC #### [place] [address] MCV (RBC) [Entitic vol] 92.7 fL Normal 80.0-94.0 [facility] Comment on above: Performed By: #### L CBC #### [facility] [address] [place] [address] Platelet mean volume (Bld) [Entitic vol] 9.7 fL Normal 7.1-10.5 [facility] Comment on above: Performed By: #### L CBC #### [facility] [address] [place], [place] [address] Platelets (Bld) [#/Vol] 232 thou/cmm Normal 150-400 [facility] Comment on above: Performed By: #### L CBC #### [facility] [address] [place], [place] [address] RBC (Bld) [#/Vol] 5.05 mil/cmm Normal 4.60-6.20 [facility] Comment on above: Performed By: #### L CBC #### [place] [address] WBC (Bld) [#/Vol] 12.6 thou/cmm High 4.8-10.5 [facility] Comment on above: Performed By: #### L CBC #### [place] [address] Lactic acidon 12-09-2018 Lactate [Moles/Vol] 2.4 mmol/L Critically high 0.4-2.0 [facility] Comment on above: Performed By: #### L LA #### [place] [address] Lipase Bloodon 12-09-2018 Lipase Blood 113 U/L Normal 73-393 [facility] Comment on above: Performed By: #### L LIP #### [address] [address] MDRD eGFRon 12-09-2018 GFR/1.73 sq M predicted among non-blacks MDRD (S/P/Bld) [Vol rate/Area] mL/min/{1.73_m2} Normal >60mL/min/1. 73m2 [facility] Comment on above: Result Comment: If t he patient is , multiply the result by 1.210. Performed By: #### L GFR #### [place] [address] N-terminal Pro-BNPon 019 Natriuretic peptide B (Bld) [Mass/Vol] 56.9 pg/mL Normal [facility] Comment on above: Result Comment: Note new reference range: Normal Reference Range: Patients <75 yrs old <125pg/ml Patients >=75 yrs old <450 pg/ml Performed By: #### L PBNP #### [place] [address] Troponin Ion 12-09-2018 Troponin I.cardiac [Mass/Vol] ng/mL Normal <=0.07 [facility] Comment on above: Performed By: #### L TRP #### [place] [address] Urinalysis Routineon 019 Appearance (U) CLEAR Normal [facility] Comment on above: Performed By: #### L URIN #### [place] [address] Bacteria LM.HPF (Urine sed) [#/Area] FEW Abnormal None [facility] Comment on above: Performed By: #### L URIN #### [place] [address] Bilirubin Urine see below Normal Negative [facility] Comment on above: Result Comment: Dete cted (Unable to confirm). Performed By: #### L URIN #### [place] [address] Color (U) DARK YELLOW Normal [facility] Comment on above: Performed By: #### L URIN #### [place] [address] Ep Cells Urine 0-2 Normal 0-5 [facility] Comment on above: Performed By: #### L URIN #### [place] [address] Glucose Ql (U) Negative Normal Negative [facility] Comment on above: Performed By: #### L URIN #### [place] [address] Hemoglobin,Urine 2+ Abnormal Negative [facility] Comment on above: Performed By: #### L URIN #### [facility] [address] [place] [address] Hyaline Cast 0-1 Abnormal None [facility] Comment on above: Performed By: #### L URIN #### [facility] [address] [place] [address] Ketone Urine Negative Normal Negative [facility] Comment on above: Performed By: #### L URIN #### [facility] [address] [place] [address] Leukocytes Esterase Negative Normal Negative [facility] Comment on above: Performed By: #### L URIN #### [place] [address] Mucus Threads FEW Normal None [facility] Comment on above: Performed By: #### L URIN #### [place] [address] Nitrites Urine Negative Normal Negative [facility] Comment on above: Performed By: #### L URIN #### [place] [address] pH (U) 5.5 [pH] Normal 5.0-8.0 [facility] Comment on above: Performed By: #### L URIN #### [place] [address] Protein (U) [Mass/Vol] 2+ Abnormal Negative [facility] Comment on above: Performed By: #### L URIN #### [place] [address] RBC LM.HPF (Urine sed) [#/Area] 0-3 Normal 0-3 [facility] Comment on above: Performed By: #### L URIN #### [facility] [address] [place] [address] Specific [place], Ur 1.020 Normal 1.005-1.030 [facility] Comment on above: Performed By: #### L URIN #### [place] [address] Urobilinogen,Ur 0.2 EU/dL Normal 0.2-1.0 [facility] Comment on above: Performed By: #### L URIN #### [facility] [address] [place] [id number] WBC LM.HPF (Urine sed) [#/Area] 0-2 Normal 0-5 [facility] Comment on above: Performed By: #### L URIN #### [facility] [address] [place] [id number] Vital Signs Date Time Vital Sign Value Performing Clinician Facility 01-26-2023 11:01-0400 Body height 193.04 cm [facility] Work Phone: 01-26-2023 11:01-0400 Body mass index (BMI) [Ratio] 37.28 kg/m2 [facility]; [facility] Work Phone: 01-26-2023 11:01-0400 Body surface area Derived from formula 2.66 m2 [facility]; [facility] Work Phone: 01-26-2023 11:01-0400 Body temperature 97 [degF] [facility]; [facility] Work Phone: 01-26-2023 11:01-0400 Body weight 138.91 kg [facility]; [facility] Work Phone: 01-26-2023 11:01-0400 Diastolic blood pressure 80 mm[Hg] [facility]; [facility] Work Phone: Comment on above: Patient Position: Sitting; Cuff Location : Left Arm; Cuff Size: Standard 01-26-2023 11:01-0400 Heart rate 65 /min [facility]; [facility] Work Phone: Comment on above: Pattern: Regular 01-26-2023 11:01-0400 Respiratory rate 18 /min [facility]; [facility] Work Phone: Comment on above: Pattern: Unlabored 01-26-2023 11:01-0400 SaO2% (BldA) [Mass fraction] 97 % Imtiaz Willoughby [facility]; [facility] Work Phone: Comment on above: Room air 01-26-2023 11:01-0400 Systolic blood pressure 132 mm[Hg] [facility] Work Phone: Comment on above: Patient Position: Sitting; Cuff Location : Left Arm; Cuff Size: Standard 10-21-2022 14:27-0400 Body height 193.[address] [facility]; [facility] Work Phone: 10-21-2022 14:27-0400 Body mass index (BMI) [Ratio] 38.59 kg/m2 [facility]; [facility] Work Phone: 10-21-2022 14:27-0400 Body surface area Derived from formula 2.69 [address] [facility]; [facility] Work Phone: 10-21-2022 14:27-0400 Body temperature 96.9 [degF] Reid Ruiz [facility]; [facility] Work Phone: 10-21-2022 14:27-0400 Body weight 143.[address] [facility]; [facility] Work Phone: 10-21-2022 14:27-0400 Diastolic blood pressure 82 mm[Hg] Reid [facility]; [facility] Work Phone: Comment on above: Patient Position: Sitting; Cuff Location : Left Arm; Cuff Size: Standard 10-21-2022 14:27-0400 Heart rate 61 /min Reid Ruiz [facility]; [facility] Work Phone: Comment on above: Pattern: Regular 10-21-2022 14:27-0400 Respiratory rate 18 /min Reid Ruiz [facility]; [facility] Work Phone: Comment on above: Pattern: Unlabored 10-21-2022 14:27-0400 SaO2% (BldA) [Mass fraction] 98 % Reid Ruiz [facility]; [facility] Work Phone: Comment on above: Room air 10-21-2022 14:27-0400 Systolic blood pressure 130 mm[Hg] [facility]; [facility] Work Phone: Comment on above: Patient Position: Sitting; Cuff Location : Left Arm; Cuff Size: Standard 07-29-2021 11:20-0500 Body height 193.04 cm Janki Vincent [facility]; [facility] Work Phone: 07-29-2021 11:20-0500 Body mass index (BMI) [Ratio] 38.59 kg/m2 Janki Vincent [facility]; [facility] Work Phone: 07-29-2021 11:20-0500 Body surface area Derived from formula 2.[address] [facility]; [facility] Work Phone: 07-29-2021 11:20-0500 Body weight 143.8 kg Jankipattie Vincent [facility]; [facility] Work Phone: 02-05-2021 13:23-0400 Body height 193.04 cm Leila Begum [facility]; [facility] Work Phone: 02-05-2021 13:23-0400 Body mass index (BMI) [Ratio] 38.59 kg/m2 Leila Begum [facility]; [facility] Work Phone: 02-05-2021 13:23-0400 Body surface area Derived from formula 2.69 m2 Leila Begum [facility]; [facility] Work Phone: 02-05-2021 13:23-0400 Body temperature 97.3 [degF] Leila Begum [facility];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 tion Online using Patient Portal and [employer] Indication:High blood pressure Start:09-Sep-2020 Instruction Type:Patient Education [facility]; [facility] Work Phone: instructions* Name Dates Details Patient Instructions Indication:Smoker Start:05-Jan-2021 Instruction Type:Provider Instructions for Treatment How to Access Health Informa tion Online using Patient Portal and [employer]rd [employer] Apps Indication:Smoker Start:05-Jan-2021 Instruction Type:Patient Education How to Access Health Informa tion Online using Patient Portal and [employer]rd [employer] Apps Indication:Smoker Start:25-Dec-2020 Instruction Type:Patient Education Patient Instructions Indication:Smoker Start:25-Dec-2020 Instruction Type:Provider Instructions for Treatment Patient Instructions Indication:Smoker Start:17-Nov-2020 Instruction Type:Provider Instructions for Treatment How to Access Health Informa tion Online using Patient Portal and [employer]rd [employer] Apps Indication:Smoker Start:17-Nov-2020 Instruction Type:Patient Education How to Access Health Informa tion Online using Patient Portal and [employer]rd [employer] Apps Indication:Smoker Start:22-Oct-2020 Instruction Type:Patient Education Patient Instructions Indication:Smoker Start:22-Oct-2020 Instruction Type:Provider Instructions for Treatment Patient Instructions Indication:Smoker Start:17-Sep-2020 Instruction Type:Provider Instructions for Treatment How to Access Health Informa tion Online using Patient Portal and [employer]rd [employer] Apps Indication:Smoker Start:17-Sep-2020 Instruction Type:Patient Education Patient Instructions Indication:BMI 38.0-38.9,adult Start:09-Sep-2020 Instruction Type:Provider Instructions for Treatment How to Access Health Informa tion Online using Patient Portal and [employer] Apps Indication:High blood pressure Start:09-Sep-2020 Instruction Type:Patient Education [facility]; [facility] Work Phone: Instructions* Name Dates Details Patient Instructions Indication:Smoker Start:05-Jan-2021 Instruction Type:Provider Instructions for Treatment How to Access Health Informa tion Online using Patient Portal and [employer]rd [employer] Apps Indication:Smoker Start:05-Jan-2021 Instruction Type:Patient Education How to Access Health Informa tion Online using Patient Portal and [employer]rd [employer] Apps Indication:Smoker Start:25-Dec-2020 Instruction Type:Patient Education Patient Instructions Indication:Smoker Start:25-Dec-2020 Instruction Type:Provider Instructions for Treatment Patient Instructions Indication:Smoker Start:17-Nov-2020 Instruction Type:Provider Instructions for Treatment How to Access Health Informa tion Online using Patient Portal and [employer] Apps Indication:Smoker Start:17-Nov-2020 Instruction Type:Patient Education How to Access Health Informa tion Online using Patient Portal and [employer] Apps Indication:Smoker Start:22-Oct-2020 Instruction Type:Patient Education Patient Instructions Indication:Smoker Start:22-Oct-2020 Instruction Type:Provider Instructions for Treatment Patient Instructions Indication:Smoker Start:17-Sep-2020 Instruction Type:Provider Instructions for Treatment How to Access Health Informa tion Online using Patient Portal and [employer] Apps Indication:Smoker Start:17-Sep-2020 Instruction Type:Patient Education Patient Instructions Indication:BMI 38.0-38.9,adult Start:09-Sep-2020 Instruction Type:Provider Instructions for Treatment How to Access Health Informa tion Online using Patient Portal and [employer] Apps Indication:High blood pressure Start:09-Sep-2020 Instruction Type:Patient Education [facility]; [facility] Work Phone: instructions* Name Dates Details Patient Instructions Indication:Smoker Start:05-Jan-2021 Instruction Type:Provider Instructions for Treatment How to Access Health Informa tion Online using Patient Portal and [employer] Apps Indication:Smoker Start:05-Jan-2021 Instruction Type:Patient Education How to Access Health Informa tion Online using Patient Portal and [employer] Apps Indication:Smoker Start:25-Dec-2020 Instruction Type:Patient Education Patient Instructions Indication:Smoker Start:25-Dec-2020 Instruction Type:Provider Instructions for Treatment Patient Instructions Indication:Smoker Start:17-Nov-2020 Instruction Type:Provider Instructions for Treatment How to Access Health Informa tion Online using Patient Portal and [employer] Apps Indication:Smoker Start:17-Nov-2020 Instruction Type:Patient Education How to Access Health Informa tion Online using Patient Portal and [employer] Apps Indication:Smoker Start:22-Oct-2020 Instruction Type:Patient Education Patient Instructions Indication:Smoker Start:22-Oct-2020 Instruction Type:Provider Instructions for Treatment Patient Instructions Indication:Smoker Start:17-Sep-2020 Instruction Type:Provider Instructions for Treatment How to Access Health Informa tion Online using Patient Portal and [employer] Apps Indication:Smoker Start:17-Sep-2020 Instruction Type:Patient Education Patient Instructions Indication:BMI 38.0-38.9,adult Start:09-Sep-2020 Instruction Type:Provider Instructions for Treatment How to Access Health Informa tion Online using Patient Portal and [employer] Apps Indication:High blood pressure Start:09-Sep-2020 Instruction Type:Patient Education [facility]; [facility] Work Phone: instructions* Name Dates Details Patient Instructions Indication:BMI 38.0-38.9,adult Start:05-Feb-2021 Instruction Type:Provider Instructions for Treatment How to Access Health Informa tion Online using Patient Portal and [employer] Apps Indication:BMI 38.0-38.9,adult Start:05-Feb-2021 Instruction Type:Patient Education Patient Instructions Indication:Smoker Start:05-Jan-2021 Instruction Type:Provider Instructions for Treatment How to Access Health Informa tion Online using Patient Portal and [employer] Apps Indication:Smoker Start:05-Jan-2021 Instruction Type:Patient Education How to Access Health Informa tion Online using Patient Portal and [employer] Apps Indication:Smoker Start:25-Dec-2020 Instruction Type:Patient Education Patient Instructions Indication:Smoker Start:25-Dec-2020 Instruction Type:Provider Instructions for Treatment Patient Instructions Indication:Smoker Start:17-Nov-2020 Instruction Type:Provider Instructions for Treatment How to Access Health Informa tion Online using Patient Portal and [employer] Apps Indication:Smoker Start:17-Nov-2020 Instruction Type:Patient Education How to Access Health Informa tion Online using Patient Portal and [employer] Apps Indication:Smoker Start:22-Oct-2020 Instruction Type:Patient Education Patient Instructions Indication:Smoker Start:22-Oct-2020 Instruction Type:Provider Instructions for Treatment Patient Instructions Indication:Smoker Start:17-Sep-2020 Instruction Type:Provider Instructions for Treatment How to Access Health Informa tion Online using Patient Portal and [employer] Apps Indication:Smoker Start:17-Sep-2020 Instruction Type:Patient Education Patient Instructions Indication:BMI 38.0-38.9,adult Start:09-Sep-2020 Instruction Type:Provider Instructions for Treatment How to Access Health Informa tion Online using Patient Portal and [employer] Apps Indication:High blood pressure Start:09-Sep-2020 Instruction Type:Patient Education [facility]; [facility] Work Phone: Instructions* Name Dates Details Patient Instructions Indication:BMI 38.0-38.9,adult Start:05-Feb-2021 Instruction Type:Provider Instructions for Treatment How to Access Health Informa tion Online using Patient Portal and [employer] Apps Indication:BMI 38.0-38.9,adult Start:05-Feb-2021 Instruction Type:Patient Education Patient Instructions Indication:Smoker Start:05-Jan-2021 Instruction Type:Provider Instructions for Treatment How to Access Health Informa tion Online using Patient Portal and [employer] Apps Indication:Smoker Start:05-Jan-2021 Instruction Type:Patient Education How to Access Health Informa tion Online using Patient Portal and [employer] Apps Indication:Smoker Start:25-Dec-2020 Instruction Type:Patient Education Patient Instructions Indication:Smoker Start:25-Dec-2020 Instruction Type:Provider Instructions for Treatment Patient Instructions Indication:Smoker Start:17-Nov-2020 Instruction Type:Provider Instructions for Treatment How to Access Health Informa tion Online using Patient Portal and [employer] Indication:Smoker Start:17-Nov-2020 Instruction Type:Patient Education How to Access Health Informa tion Online using Patient Portal and [employer] Apps Indication:Smoker Start:22-Oct-2020 Instruction Type:Patient Education Patient Instructions Indication:Smoker Start:22-Oct-2020 Instruction Type:Provider Instructions for Treatment Patient Instructions Indication:Smoker Start:17-Sep-2020 Instruction Type:Provider Instructions for Treatment How to Access Health Informa tion Online using Patient Portal and [employer] Apps Indication:Smoker Start:17-Sep-2020 Instruction Type:Patient Education Patient Instructions Indication:BMI 38.0-38.9,adult Start:09-Sep-2020 Instruction Type:Provider Instructions for Treatment How to Access Health Informa tion Online using Patient Portal and [employer] Apps Indication:High blood pressure Start:09-Sep-2020 Instruction Type:Patient Education [facility]; [facility] Work Phone: Instructions* Name Dates Details Patient Instructions Indication:Smoker Start:29-Jul-2021 Instruction Type:Provider Instructions for Treatment How to Access Health Informa tion Online using Patient Portal and [employer] Apps Indication:Smoker Start:29-Jul-2021 Instruction Type:Patient Education Patient Instructions Indication:BMI 38.0-38.9,adult Start:05-Feb-2021 Instruction Type:Provider Instructions for Treatment How to Access Health Informa tion Online using Patient Portal and [employer] Apps Indication:BMI 38.0-38.9,adult Start:05-Feb-2021 Instruction Type:Patient Education Patient Instructions Indication:Smoker Start:05-Jan-2021 Instruction Type:Provider Instructions for Treatment How to Access Health Informa tion Online using Patient Portal and [employer] Apps Indication:Smoker Start:05-Jan-2021 Instruction Type:Patient Education How to Access Health Informa tion Online using Patient Portal and [employer] Apps Indication:Smoker Start:25-Dec-2020 Instruction Type:Patient Education Patient Instructions Indication:Smoker Start:25-Dec-2020 Instruction Type:Provider Instructions for Treatment Patient Instructions Indication:Smoker Start:17-Nov-2020 Instruction Type:Provider Instructions for Treatment How to Access Health Informa tion Online using Patient Portal and [employer] Apps Indication:Smoker Start:17-Nov-2020 Instruction Type:Patient Education How to Access Health Informa tion Online using Patient Portal and [employer] Apps Indication:Smoker Start:22-Oct-2020 Instruction Type:Patient Education Patient Instructions Indication:Smoker Start:22-Oct-2020 Instruction Type:Provider Instructions for Treatment Patient Instructions Indication:Smoker Start:17-Sep-2020 Instruction Type:Provider Instructions for Treatment How to Access Health Informa tion Online using Patient Portal and [employer] Apps Indication:Smoker Start:17-Sep-2020 Instruction Type:Patient Education Patient Instructions Indication:BMI 38.0-38.9,adult Start:09-Sep-2020 Instruction Type:Provider Instructions for Treatment How to Access Health Informa tion Online using Patient Portal and [employer] Apps Indication:High blood pressure Start:09-Sep-2020 Instruction Type:Patient Education [facility]; [facility] Work Phone: Instructions* Name Dates Details Patient Instructions Indication:Smoker Start:29-Jul-2021 Instruction Type:Provider Instructions for Treatment How to Access Health Informa tion Online using Patient Portal and [employer] Apps Indication:Smoker Start:29-Jul-2021 Instruction Type:Patient Education Patient Instructions Indication:BMI 38.0-38.9,adult Start:05-Feb-2021 Instruction Type:Provider Instructions for Treatment How to Access Health Informa tion Online using Patient Portal and [employer] Apps Indication:BMI 38.0-38.9,adult Start:05-Feb-2021 Instruction Type:Patient Education Patient Instructions Indication:Smoker Start:05-Jan-2021 Instruction Type:Provider Instructions for Treatment How to Access Health Informa tion Online using Patient Portal and [employer] Apps Indication:Smoker Start:05-Jan-2021 Instruction Type:Patient Education How to Access Health Informa tion Online using Patient Portal and [employer] Apps Indication:Smoker Start:25-Dec-2020 Instruction Type:Patient Education Patient Instructions Indication:Smoker Start:25-Dec-2020 Instruction Type:Provider Instructions for Treatment Patient Instructions Indication:Smoker Start:17-Nov-2020 Instruction Type:Provider Instructions for Treatment How to Access Health Informa tion Online using Patient Portal and [employer] Apps Indication:Smoker Start:17-Nov-2020 Instruction Type:Patient Education How to Access Health Informa tion Online using Patient Portal and [employer] Apps Indication:Smoker Start:22-Oct-2020 Instruction Type:Patient Education Patient Instructions Indication:Smoker Start:22-Oct-2020 Instruction Type:Provider Instructions for Treatment Patient Instructions Indication:Smoker Start:17-Sep-2020 Instruction Type:Provider Instructions for Treatment How to Access Health Informa tion Online using Patient Portal and [employer] Apps Indication:Smoker Start:17-Sep-2020 Instruction Type:Patient Education Patient Instructions Indication:BMI 38.0-38.9,adult Start:09-Sep-2020 Instruction Type:Provider Instructions for Treatment How to Access Health Informa tion Online using Patient Portal and [employer] Apps Indication:High blood pressure Start:09-Sep-2020 Instruction Type:Patient Education [facility]; [facility] Work Phone: Instructions* Name Dates Details Patient Instructions Indication:Smoker Start:29-Jul-2021 Instruction Type:Provider Instructions for Treatment How to Access Health Informa tion Online using Patient Portal and [employer] Apps Indication:Smoker Start:29-Jul-2021 Instruction Type:Patient Education Patient Instructions Indication:BMI 38.0-38.9,adult Start:05-Feb-2021 Instruction Type:Provider Instructions for Treatment How to Access Health Informa tion Online using Patient Portal and [employer]rd [employer] Apps Indication:BMI 38.0-38.9,adult Start:05-Feb-2021 Instruction Type:Patient Education Patient Instructions Indication:Smoker Start:05-Jan-2021 Instruction Type:Provider Instructions for Treatment How to Access Health Informa tion Online using Patient Portal and [employer] Apps Indication:Smoker Start:05-Jan-2021 Instruction Type:Patient Education How to Access Health Informa tion Online using Patient Portal and [employer] Apps Indication:Smoker Start:25-Dec-2020 Instruction Type:Patient Education Patient Instructions Indication:Smoker Start:25-Dec-2020 Instruction Type:Provider Instructions for Treatment Patient Instructions Indication:Smoker Start:17-Nov-2020 Instruction Type:Provider Instructions for Treatment How to Access Health Informa tion Online using Patient Portal and [employer] Apps Indication:Smoker Start:17-Nov-2020 Instruction Type:Patient Education How to Access Health Informa tion Online using Patient Portal and [employer] Apps Indication:Smoker Start:22-Oct-2020 Instruction Type:Patient Education Patient Instructions Indication:Smoker Start:22-Oct-2020 Instruction Type:Provider Instructions for Treatment Patient Instructions Indication:Smoker Start:17-Sep-2020 Instruction Type:Provider Instructions for Treatment How to Access Health Informa tion Online using Patient Portal and [employer] Apps Indication:Smoker Start:17-Sep-2020 Instruction Type:Patient Education Patient Instructions Indication:BMI 38.0-38.9,adult Start:09-Sep-2020 Instruction Type:Provider Instructions for Treatment How to Access Health Informa tion Online using Patient Portal and [employer] Apps Indication:High blood pressure Start:09-Sep-2020 Instruction Type:Patient Education [facility]; [facility] Work Phone: Instructions* Name Dates Details Patient Instructions Indication:Smoker Start:17-Mar-2022 Instruction Type:Provider Instructions for Treatment How to Access Health Informa tion Online using Patient Portal and [employer] Apps Indication:Smoker Start:17-Mar-2022 Instruction Type:Patient Education Patient Instructions Indication:Smoker Start:29-Jul-2021 Instruction Type:Provider Instructions for Treatment How to Access Health Informa tion Online using Patient Portal and [employer] Apps Indication:Smoker Start:29-Jul-2021 Instruction Type:Patient Education Patient Instructions Indication:BMI 38.0-38.9,adult Start:05-Feb-2021 Instruction Type:Provider Instructions for Treatment How to Access Health Informa tion Online using Patient Portal and [employer] Apps Indication:BMI 38.0-38.9,adult Start:05-Feb-2021 Instruction Type:Patient Education Patient Instructions Indication:Smoker Start:05-Jan-2021 Instruction Type:Provider Instructions for Treatment How to Access Health Informa tion Online using Patient Portal and [employer] Apps Indication:Smoker Start:05-Jan-2021 Instruction Type:Patient Education How to Access Health Informa tion Online using Patient Portal and [employer] Apps Indication:Smoker Start:25-Dec-2020 Instruction Type:Patient Education Patient Instructions Indication:Smoker Start:25-Dec-2020 Instruction Type:Provider Instructions for Treatment Patient Instructions Indication:Smoker Start:17-Nov-2020 Instruction Type:Provider Instructions for Treatment How to Access Health Informa tion Online using Patient Portal and [employer] Apps Indication:Smoker Start:17-Nov-2020 Instruction Type:Patient Education How to Access Health Informa tion Online using Patient Portal and [employer] Apps Indication:Smoker Start:22-Oct-2020 Instruction Type:Patient Education Patient Instructions Indication:Smoker Start:22-Oct-2020 Instruction Type:Provider Instructions for Treatment Patient Instructions Indication:Smoker Start:17-Sep-2020 Instruction Type:Provider Instructions for Treatment How to Access Health Informa tion Online using Patient Portal and [employer] Apps Indication:Smoker Start:17-Sep-2020 Instruction Type:Patient Education Patient Instructions Indication:BMI 38.0-38.9,adult Start:09-Sep-2020 Instruction Type:Provider Instructions for Treatment How to Access Health Informa tion Online using Patient Portal and [employer] Apps Indication:High blood pressure Start:09-Sep-2020 Instruction Type:Patient Education [facility]; [facility] Work Phone: Instructions* Name Dates Details Patient Instructions Indication:BMI 38.0-38.9,adult Start:21-Oct-2022 Instruction Type:Provider Instructions for Treatment How to Access Health Informa tion Online using Patient Portal and [employer] Apps Indication:BMI 38.0-38.9,adult Start:21-Oct-2022 Instruction Type:Patient Education Patient Instructions Indication:Smoker Start:17-Mar-2022 Instruction Type:Provider Instructions for Treatment How to Access Health Informa tion Online using Patient Portal and [employer] Apps Indication:Smoker Start:17-Mar-2022 Instruction Type:Patient Education Patient Instructions Indication:Smoker Start:29-Jul-2021 Instruction Type:Provider Instructions for Treatment How to Access Health Informa tion Online using Patient Portal and [employer] Apps Indication:Smoker Start:29-Jul-2021 Instruction Type:Patient Education Patient Instructions Indication:BMI 38.0-38.9,adult Start:05-Feb-2021 Instruction Type:Provider Instructions for Treatment How to Access Health Informa tion Online using Patient Portal and [employer] Apps Indication:BMI 38.0-38.9,adult Start:05-Feb-2021 Instruction Type:Patient Education Patient Instructions Indication:Smoker Start:05-Jan-2021 Instruction Type:Provider Instructions for Treatment How to Access Health Informa tion Online using Patient Portal and [employer] Apps Indication:Smoker Start:05-Jan-2021 Instruction Type:Patient Education How to Access Health Informa tion Online using Patient Portal and [employer] Apps Indication:Smoker Start:25-Dec-2020 Instruction Type:Patient Education Patient Instructions Indication:Smoker Start:25-Dec-2020 Instruction Type:Provider Instructions for Treatment Patient Instructions Indication:Smoker Start:17-Nov-2020 Instruction Type:Provider Instructions for Treatment How to Access Health Informa tion Online using Patient Portal and [employer] Apps Indication:Smoker Start:17-Nov-2020 Instruction Type:Patient Education How to Access Health Informa tion Online using Patient Portal and [employer] Apps Indication:Smoker Start:22-Oct-2020 Instruction Type:Patient Education Patient Instructions Indication:Smoker Start:22-Oct-2020 Instruction Type:Provider Instructions for Treatment Patient Instructions Indication:Smoker Start:17-Sep-2020 Instruction Type:Provider Instructions for Treatment How to Access Health Informa tion Online using Patient Portal and [employer] Apps Indication:Smoker Start:17-Sep-2020 Instruction Type:Patient Education Patient Instructions Indication:BMI 38.0-38.9,adult Start:09-Sep-2020 Instruction Type:Provider Instructions for Treatment How to Access Health Informa tion Online using Patient Portal and [employer] Apps Indication:High blood pressure Start:09-Sep-2020 Instruction Type:Patient Education [facility]; [facility] Work Phone: Instructions* Name Dates Details Patient Instructions Indication:BMI 38.0-38.9,adult Start:21-Oct-2022 Instruction Type:Provider Instructions for Treatment How to Access Health Informa tion Online using Patient Portal and [employer] Apps Indication:BMI 38.0-38.9,adult Start:21-Oct-2022 Instruction Type:Patient Education Patient Instructions Indication:Smoker Start:17-Mar-2022 Instruction Type:Provider Instructions for Treatment How to Access Health Informa tion Online using Patient Portal and [employer] Apps Indication:Smoker Start:17-Mar-2022 Instruction Type:Patient Education Patient Instructions Indication:Smoker Start:29-Jul-2021 Instruction Type:Provider Instructions for Treatment How to Access Health Informa tion Online using Patient Portal and [employer] Apps Indication:Smoker Start:29-Jul-2021 Instruction Type:Patient Education Patient Instructions Indication:BMI 38.0-38.9,adult Start:05-Feb-2021 Instruction Type:Provider Instructions for Treatment How to Access Health Informa tion Online using Patient Portal and [employer] Apps Indication:BMI 38.0-38.9,adult Start:05-Feb-2021 Instruction Type:Patient Education Patient Instructions Indication:Smoker Start:05-Jan-2021 Instruction Type:Provider Instructions for Treatment How to Access Health Informa tion Online using Patient Portal and [employer] Apps Indication:Smoker Start:05-Jan-2021 Instruction Type:Patient Education How to Access Health Informa tion Online using Patient Portal and [employer] Apps Indication:Smoker Start:25-Dec-2020 Instruction Type:Patient Education Patient Instructions Indication:Smoker Start:25-Dec-2020 Instruction Type:Provider Instructions for Treatment Patient Instructions Indication:Smoker Start:17-Nov-2020 Instruction Type:Provider Instructions for Treatment How to Access Health Informa tion Online using Patient Portal and [employer] Indication:Smoker Start:17-Nov-2020 Instruction Type:Patient Education How to Access Health Informa tion Online using Patient Portal and [employer] Apps Indication:Smoker Start:22-Oct-2020 Instruction Type:Patient Education Patient Instructions Indication:Smoker Start:22-Oct-2020 Instruction Type:Provider Instructions for Treatment Patient Instructions Indication:Smoker Start:17-Sep-2020 Instruction Type:Provider Instructions for Treatment How to Access Health Informa tion Online using Patient Portal and [employer] Indication:Smoker Start:17-Sep-2020 Instruction Type:Patient Education Patient Instructions Indication:BMI 38.0-38.9,adult Start:09-Sep-2020 Instruction Type:Provider Instructions for Treatment How to Access Health Informa tion Online using Patient Portal and [employer] Apps Indication:High blood pressure Start:09-Sep-2020 Instruction Type:Patient Education [facility]; [facility] Work Phone: Instructions* Name Dates Details Patient Instructions Indication:BMI 38.0-38.9,adult Start:21-Oct-2022 Instruction Type:Provider Instructions for Treatment How to Access Health Informa tion Online using Patient Portal and [employer] Indication:BMI 38.0-38.9,adult Start:21-Oct-2022 Instruction Type:Patient Education Patient Instructions Indication:Smoker Start:17-Mar-2022 Instruction Type:Provider Instructions for Treatment How to Access Health Informa tion Online using Patient Portal and [employer] Apps Indication:Smoker Start:17-Mar-2022 Instruction Type:Patient Education Patient Instructions Indication:Smoker Start:29-Jul-2021 Instruction Type:Provider Instructions for Treatment How to Access Health Informa tion Online using Patient Portal and [employer] Apps Indication:Smoker Start:29-Jul-2021 Instruction Type:Patient Education Patient Instructions Indication:BMI 38.0-38.9,adult Start:05-Feb-2021 Instruction Type:Provider Instructions for Treatment How to Access Health Informa tion Online using Patient Portal and [employer] Apps Indication:BMI 38.0-38.9,adult Start:05-Feb-2021 Instruction Type:Patient Education Patient Instructions Indication:Smoker Start:05-Jan-2021 Instruction Type:Provider Instructions for Treatment How to Access Health Informa tion Online using Patient Portal and [employer] Apps Indication:Smoker Start:05-Jan-2021 Instruction Type:Patient Education How to Access Health Informa tion Online using Patient Portal and [employer] Apps Indication:Smoker Start:25-Dec-2020 Instruction Type:Patient Education Patient Instructions Indication:Smoker Start:25-Dec-2020 Instruction Type:Provider Instructions for Treatment Patient Instructions Indication:Smoker Start:17-Nov-2020 Instruction Type:Provider Instructions for Treatment How to Access Health Informa tion Online using Patient Portal and [employer] Apps Indication:Smoker Start:17-Nov-2020 Instruction Type:Patient Education How to Access Health Informa tion Online using Patient Portal and [employer] Apps Indication:Smoker Start:22-Oct-2020 Instruction Type:Patient Education Patient Instructions Indication:Smoker Start:22-Oct-2020 Instruction Type:Provider Instructions for Treatment Patient Instructions Indication:Smoker Start:17-Sep-2020 Instruction Type:Provider Instructions for Treatment How to Access Health Informa tion Online using Patient Portal and [employer] Apps Indication:Smoker Start:17-Sep-2020 Instruction Type:Patient Education Patient Instructions Indication:BMI 38.0-38.9,adult Start:09-Sep-2020 Instruction Type:Provider Instructions for Treatment How to Access Health Informa tion Online using Patient Portal and [employer] Apps Indication:High blood pressure Start:09-Sep-2020 Instruction Type:Patient Education [facility]; [facility] Work Phone: Instructions* Name Dates Details Patient Instructions Indication:BMI 38.0-38.9,adult Start:21-Oct-2022 Instruction Type:Provider Instructions for Treatment How to Access Health Informa tion Online using Patient Portal and [employer] Apps Indication:BMI 38.0-38.9,adult Start:21-Oct-2022 Instruction Type:Patient Education Patient Instructions Indication:Smoker Start:17-Mar-2022 Instruction Type:Provider Instructions for Treatment How to Access Health Informa tion Online using Patient Portal and [employer] Apps Indication:Smoker Start:17-Mar-2022 Instruction Type:Patient Education Patient Instructions Indication:Smoker Start:29-Jul-2021 Instruction Type:Provider Instructions for Treatment How to Access Health Informa tion Online using Patient Portal and [employer] Apps Indication:Smoker Start:29-Jul-2021 Instruction Type:Patient Education Patient Instructions Indication:BMI 38.0-38.9,adult Start:05-Feb-2021 Instruction Type:Provider Instructions for Treatment How to Access Health Informa tion Online using Patient Portal and [employer] Apps Indication:BMI 38.0-38.9,adult Start:05-Feb-2021 Instruction Type:Patient Education Patient Instructions Indication:Smoker Start:05-Jan-2021 Instruction Type:Provider Instructions for Treatment How to Access Health Informa tion Online using Patient Portal and [employer] Apps Indication:Smoker Start:05-Jan-2021 Instruction Type:Patient Education How to Access Health Informa tion Online using Patient Portal and [employer] Apps Indication:Smoker Start:25-Dec-2020 Instruction Type:Patient Education Patient Instructions Indication:Smoker Start:25-Dec-2020 Instruction Type:Provider Instructions for Treatment Patient Instructions Indication:Smoker Start:17-Nov-2020 Instruction Type:Provider Instructions for Treatment How to Access Health Informa tion Online using Patient Portal and [employer] Apps Indication:Smoker Start:17-Nov-2020 Instruction Type:Patient Education How to Access Health Informa tion Online using Patient Portal and [employer] Apps Indication:Smoker Start:22-Oct-2020 Instruction Type:Patient Education Patient Instructions Indication:Smoker Start:22-Oct-2020 Instruction Type:Provider Instructions for Treatment Patient Instructions Indication:Smoker Start:17-Sep-2020 Instruction Type:Provider Instructions for Treatment How to Access Health Informa tion Online using Patient Portal and [employer] Apps Indication:Smoker Start:17-Sep-2020 Instruction Type:Patient Education Patient Instructions Indication:BMI 38.0-38.9,adult Start:09-Sep-2020 Instruction Type:Provider Instructions for Treatment How to Access Health Informa tion Online using Patient Portal and [employer] Apps Indication:High blood pressure Start:09-Sep-2020 Instruction Type:Patient Education [facility]; [facility] Work Phone: Instructions* Name Dates Details How to Access Health Informa tion Online using Patient Portal and [employer] Apps Indication:Smoker Start:26-Jan-2023 Instruction Type:Patient Education Patient Instructions Indication:Smoker Start:26-Jan-2023 Instruction Type:Provider Instructions for Treatment Patient Instructions Indication:BMI 38.0-38.9,adult Start:21-Oct-2022 Instruction Type:Provider Instructions for Treatment How to Access Health Informa tion Online using Patient Portal and [employer] Apps Indication:BMI 38.0-38.9,adult Start:21-Oct-2022 Instruction Type:Patient Education Patient Instructions Indication:Smoker Start:17-Mar-2022 Instruction Type:Provider Instructions for Treatment How to Access Health Informa tion Online using Patient Portal and [employer] Apps Indication:Smoker Start:17-Mar-2022 Instruction Type:Patient Education Patient Instructions Indication:Smoker Start:29-Jul-2021 Instruction Type:Provider Instructions for Treatment How to Access Health Informa tion Online using Patient Portal and [employer] Apps Indication:Smoker Start:29-Jul-2021 Instruction Type:Patient Education Patient Instructions Indication:BMI 38.0-38.9,adult Start:05-Feb-2021 Instruction Type:Provider Instructions for Treatment How to Access Health Informa tion Online using Patient Portal and [employer] Apps Indication:BMI 38.0-38.9,adult Start:05-Feb-2021 Instruction Type:Patient Education Patient Instructions Indication:Smoker Start:05-Jan-2021 Instruction Type:Provider Instructions for Treatment How to Access Health Informa tion Online using Patient Portal and [employer] Apps Indication:Smoker Start:05-Jan-2021 Instruction Type:Patient Education How to Access Health Informa tion Online using Patient Portal and [employer] Apps Indication:Smoker Start:25-Dec-2020 Instruction Type:Patient Education Patient Instructions Indication:Smoker Start:25-Dec-2020 Instruction Type:Provider Instructions for Treatment Patient Instructions Indication:Smoker Start:17-Nov-2020 Instruction Type:Provider Instructions for Treatment How to Access Health Informa tion Online using Patient Portal and [employer] Apps Indication:Smoker Start:17-Nov-2020 Instruction Type:Patient Education How to Access Health Informa tion Online using Patient Portal and [employer]rd [employer] Apps Indication:Smoker Start:22-Oct-2020 Instruction Type:Patient Education Patient Instructions Indication:Smoker Start:22-Oct-2020 Instruction Type:Provider Instructions for Treatment Patient Instructions Indication:Smoker Start:17-Sep-2020 Instruction Type:Provider Instructions for Treatment How to Access Health Informa tion Online using Patient Portal and [employer] Apps Indication:Smoker Start:17-Sep-2020 Instruction Type:Patient Education Patient Instructions Indication:BMI 38.0-38.9,adult Start:09-Sep-2020 Instruction Type:Provider Instructions for Treatment How to Access Health Informa tion Online using Patient Portal and [employer] Apps Indication:High blood pressure Start:09-Sep-2020 Instruction Type:Patient Education [facility]; [facility] Work Phone: Summary Purpose Family History No Family History Records FoundUnknown Family Member Name Dates Details Father Comments:passed from thyroid cacner Status:Active Mother Comments:stroke Status:Active Unknown Family Member Name Dates Details Father Comments:passed from thyroid cacner Status:Active Mother Comments:stroke Status:Active Unknown Family Member Name Dates Details Father Comments:passed from thyroid cacner Status:Active Mother Comments:stroke Status:Active Unknown Family Member Name Dates Details Father Comments:passed from thyroid cacner Status:Active Mother Comments:stroke Status:Active Unknown Family Member Name Dates Details Father Comments:passed from thyroid cacner Status:Active Mother Comments:stroke Status:Active Unknown Family Member Name Dates Details Father Comments:passed from thyroid cacner Status:Active Mother Comments:stroke Status:Active Unknown Family Member Name Dates Details Father Comments:passed from thyroid cacner Status:Active Mother Comments:stroke Status:Active Unknown Family Member Name Dates Details Father Comments:passed from thyroid cacner Status:Active Mother Comments:stroke Status:Active Unknown Family Member Name Dates Details Father Comments:passed from thyroid cacner Status:Active Mother Comments:stroke Status:Active Unknown Family Member Name Dates Details Father Comments:passed from thyroid cacner Status:Active Mother Comments:stroke Status:Active Unknown Family Member Name Dates Details Father Comments:passed from thyroid cacner Status:Active Mother Comments:stroke Status:Active Unknown Family Member Name Dates Details Father Comments:passed from thyroid cacner Status:Active Mother Comments:stroke Status:Active Unknown Family Member Name Dates Details Father Comments:passed from thyroid cacner Status:Active Mother Comments:stroke Status:Active Unknown Family Member Name Dates Details Father Comments:passed from thyroid cacner Status:Active Mother Comments:stroke Status:Active Unknown Family Member Name Dates Details Father Comments:passed from thyroid cacner Status:Active Mother Comments:stroke Status:Active Unknown Family Member Name Dates Details Father Comments:passed from thyroid cacner Status:Active Mother Comments:stroke Status:Active Unknown Family Member Name Dates Details Father Comments:passed from thyroid cacner Status:Active Mother Comments:stroke Status:Active Unknown Family Member Name Dates Details Father Comments:passed from thyroid cacner Status:Active Mother Comments:stroke Status:Active Unknown Family Member Name Dates Details Father Comments:passed from thyroid cacner Status:Active Mother Comments:stroke Status:Active Unknown Family Member Name Dates Details Father Comments:passed from thyroid cacner Status:Active Mother Comments:stroke Status:Active Unknown Family Member Name Dates Details Father Comments:passed from thyroid cacner Status:Active Mother Comments:stroke Status:Active Unknown Family Member Name Dates Details Father Comments:passed from thyroid cacner Status:Active Mother Comments:stroke Status:Active Unknown Family Member Name Dates Details Father Comments:passed from thyroid cacner Status:Active Mother Comments:stroke Status:Active Unknown Family Member Name Dates Details Father Comments:passed from thyroid cacner Status:Active Mother Comments:stroke Status:Active Advance Directives No Advanced Directives Records FoundDocuments on File Type Date Recorded Patient Clinical Operations Consultant Expl anation Advance Directives and Living Will Power of Footwear Machinery Instructor Documents on File Type Date Recorded Patient Clinical Operations Consultant Expl anation ACP-Advance Directive ACP-Power of Footwear Machinery Instructor Advance Directive Response Recorded Date/ Time Living Will Yes June 09 3:19am Power of Footwear Machinery Instructor Yes June 09, 2021 3:19am Instructions Name Dates Details Patient Instructions Indication:BMI 38.0-38.9,adult Start:09-Sep-2020 Instruction Type:Provider Instructions for Treatment How to Access Health Informa tion Online using Patient Portal and [employer] Apps Indication:High blood pressure Start:09-Sep-2020 Instruction Type:Patient Education Name Dates Details Patient Instructions Indication:Smoker Start:17-Sep-2020 Instruction Type:Provider Instructions for Treatment How to Access Health Informa tion Online using Patient Portal and [employer] Apps Indication:Smoker Start:17-Sep-2020 Instruction Type:Patient Education Patient Instructions Indication:BMI 38.0-38.9,adult Start:09-Sep-2020 Instruction Type:Provider Instructions for Treatment How to Access Health Informa tion Online using Patient Portal and [employer] Apps Indication:High blood pressure Start:09-Sep-2020 Instruction Type:Patient Education Name Dates Details Patient Instructions Indication:Smoker Start:17-Sep-2020 Instruction Type:Provider Instructions for Treatment How to Access Health Informa tion Online using Patient Portal and [employer] Apps Indication:Smoker Start:17-Sep-2020 Instruction Type:Patient Education Patient Instructions Indication:BMI 38.0-38.9,adult Start:09-Sep-2020 Instruction Type:Provider Instructions for Treatment How to Access Health Informa tion Online using Patient Portal and [employer] Apps Indication:High blood pressure Start:09-Sep-2020 Instruction Type:Patient Education Name Dates Details How to Access Health Informa tion Online using Patient Portal and [employer] Apps Indication:Smoker Start:16-Oct-2020 Instruction Type:Patient Education Patient Instructions Indication:Smoker Start:16-Oct-2020 Instruction Type:Provider Instructions for Treatment Patient Instructions Indication:Smoker Start:17-Sep-2020 Instruction Type:Provider Instructions for Treatment How to Access Health Informa tion Online using Patient Portal and [employer] Apps Indication:Smoker Start:17-Sep-2020 Instruction Type:Patient Education Patient Instructions Indication:BMI 38.0-38.9,adult Start:09-Sep-2020 Instruction Type:Provider Instructions for Treatment How to Access Health Informa tion Online using Patient Portal and [employer] Apps Indication:High blood pressure Start:09-Sep-2020 Instruction Type:Patient Education Name Dates Details How to Access Health Informa tion Online using Patient Portal and [employer] Apps Indication:Smoker Start:22-Oct-2020 Instruction Type:Patient Education Patient Instructions Indication:Smoker Start:22-Oct-2020 Instruction Type:Provider Instructions for Treatment Patient Instructions Indication:Smoker Start:17-Sep-2020 Instruction Type:Provider Instructions for Treatment How to Access Health Informa tion Online using Patient Portal and [employer] Apps Indication:Smoker Start:17-Sep-2020 Instruction Type:Patient Education Patient Instructions Indication:BMI 38.0-38.9,adult Start:09-Sep-2020 Instruction Type:Provider Instructions for Treatment How to Access Health Informa tion Online using Patient Portal and [employer] Apps Indication:High blood pressure Start:09-Sep-2020 Instruction Type:Patient Education Assessments Diagnosis Right lower quadrant pain Abdominal pain, right lower quadrant Chief Complaint and Reason for Visit Chief Complaint Other specified diso rders of adrenal gland Chief Complaint Par[employer]ia Additional Source Comments (unrecognized sect ion and content) No Status Records FoundNo Status Records FoundNo Status Records FoundNo Status Records FoundNo Status Records FoundNo Status Records FoundNo Status Records FoundNo Status Records FoundNo Status Records FoundNo Status Records Found INFORMATION SOURCE (unrecogn ized section and content) DATE CREATED AUTHOR 01/06/2018 [employer] DATE CREATED AUTHOR AUTHOR'S ORGANIZ ATION 2019 [facility] DATE CREATED AUTHOR AUTHOR'S ORGANIZ ATION 05/19/2019 [facility] DATE CREATED AUTHOR AUTHOR'S ORGANIZ ATION 07/09/2020 [facility] DATE CREATED AUTHOR AUTHOR'S ORGANIZ ATION 11/20/2020 [facility] DATE CREATED AUTHOR AUTHOR'S ORGANIZ ATION 11/22/2020 [facility] DATE CREATED AUTHOR AUTHOR'S ORGANIZ ATION 02/07/2021 [facility] DATE CREATED AUTHOR AUTHOR'S ORGANIZ ATION 06/09/2022 [facility] DATE CREATED AUTHOR AUTHOR'S ORGANIZ ATION 11/30/[address] [facility] DATE CREATED AUTHOR AUTHOR'S ORGANIZ ATION 05/21/2025 [facility] Reason for Visit (unrecogniz ed section and content) Reason Comments Head Injury Care Teams (unrecognized sec tion and content) Team Status: Active Member Role Status Dates No Primary Care Physician Family Provider Active Dr. Abril Robles DO Primary Care Provider Active Team Status: Inactive Member Role Status Dates Dr. Abril Robles , DO Primary Care Pr ovider, Attending Provider, Referring Provider Active Goals (unrecognized section and content) Goals may be documented in a n alternate sectionGoals may be documented in an alternate section FOR RECORDS PERTAINING TO PATIENTS WHO ARE OR HAVE BEEN ENROLLED IN A CHEMICAL DEPENDENCY/SUBSTANCEABUSE PROGRAM, SOME INFORMATION MAY BE OMITTED. This clinical summary was aggregated from multiple sources. Caution should be exercised in using it in the provision of clinical care. This summary normalizes information from multiple sources, and as a consequence, information in this document may materially change the coding, format and clinical context of patient data. In addition, data may be omitted in some cases. CLINICAL DECISIONS SHOULD BE BASED ON THE PRIMARY CLINICAL RECORDS. [facility] [employer] [facility]. provides no warranty or guarantee of the accuracy or completeness of information in this document.
[2025-05-21] MEDS: Lactated Ringers 1,000 ML 15 ML IV (07:22)
--- NOTE | 2025-05-21 07:38 | PCM.HP.STD ---
[facility] - General General Date of Admission: 05/21/25 Date of Service: 05/21/25 Chief Complaint: Screening colonoscopy HPI Narrative SHERLEY RICHARDS, is a 55 M who presents for screening colonoscopy. His last colonoscopy was about 5 years ago. He had bout of perforated diverticulitis about 5 or 6 years ago treated initially with a Christel procedure. This was then taken down. After the colostomy takedown surgery, he had his first colonoscopy. I believe 1 polyp was removed at that time. Patient states he has noticed that his bowels do not seem to be working as well as they previously had been in terms of frequency of bowel movements. He denies any blood in the stools. [facility] Medical History (Updated 05/16/25 @ 14:56 by Katy Payne) Wears glasses Injury of head and neck Smoker Anxiety Depression Traumatic brain injury History of diverticulitis Home Medications Medication Instructions Recorded Last Taken Type citalopram 40 mg tablet (Celexa) 80 mg PO QDAY 05/08/25 05/20/25 History diazepam 10 mg tablet (Valium) 30 - 50 mg PO BID-TID PRN anxiety 05/08/25 05/20/25 History lidocaine nasal spray 1 spray NASAL PRN 05/08/25 05/20/25 History super colon cleanse 1 tab PO DAILY PRN STOOL SOFTENER 05/08/25 05/20/25 History [id number]-[id number]-[id number]-horse 1 tab PO .weekly 05/08/25 05/20/25 History 100 mg-100 mg-100 mg-125 mg tab (Tumersaid) Allergy/AdvReac Type Severity Reaction Status Date / Time No Known Allergies Allergy Verified 05/08/25 14:28 Family History (Updated 05/08/25 @ 14:27 by Helene Queen) Mother Kidney disease CVA (cerebral vascular accident) Father Cancer thyroid Surgical History (Updated 05/16/25 @ 14:56 by Katy Payne) Hx of mastoidectomy Hx of hernia repair H/O colostomy History of bowel resection Social History (Updated 05/08/25 @ 14:27 by Helene Queen) Smoking Status: Current every day smoker tobacco type: cigarettes quit status: quit date established Vital Signs Vital Signs Vital Signs: 05/21/25 07:16 05/21/25 07:16 Temperature 97.6 F L Temperature Source Temporal Pulse Rate 73 Respiratory Rate 16 Respiratory Pattern Normal Blood Pressure 148/96 H Blood Pressure Mean 113 Blood Pressure Source Monitor Blood Pressure Position Semi-Fowlers Blood Pressure Location Left Arm Pulse Ox 96 Oxygen Delivery Method Room Air Weight Weight: 324 lb 1.272 oz Body Mass Index (BMI) 39.4 Physical Exam Const alert, oriented x3 and no apparent distress Assessment & Plan Assessment/Plan (1) Encounter for screening for malignant neoplasm of colon: PLAN: Plan Colonoscopy to be performed today. Details of the procedure reviewed. Procedure will begin shortly
--- NOTE | 2025-05-21 07:49 | PCM.PRE.AN2 ---
ASA Classification* ASA Classification ASA Classification: 2 Assessment & Plan Anesthesia* Anesthesia Assessment Anesthesia Assessment: Discussed sedation and/or anesthesia options, risks, benefits, and alternatives with patient/parents/legal guardian/POA. Questions invited. The patient/parents/legal guardian/POA seems to understand and agrees to proceed with anesthesia plan. Reviewed the physical assessment, medical history, allergy history and patient home medications list prior to surgery/procedure/anesthetic and documented any changes. Performed airway and anesthesia risk assessments. Anesthesia Type Anesthesia Type: MAC History Source History Obtained from:: Patient and Chart Anesthesia Focused Assessment* Temperature: 97.6 F Pulse Rate: 73 Blood Pressure: 148/96 Respiratory Rate: 16 Pulse Ox: 96 Oxygen Delivery Method: Room Air Airway Assessment Mouth opens: >3 cm Mallampati Score: I Teeth Condition: Missing (Patient is missing a top left molar. Rest are tight.) Neck Range of motion (ROM): Limited ROM (Somewhat Decreased) Labs Anesthesia Preop lab: CBC WBC, (4.4-11.0) 8.7 K/mm3 06/09/21, 02:20 RBC, (4.6-6.2) 5.23 M/mm3 06/09/21, 02:20 Hgb, (13.0-16.5) 16.1 g/dL 06/09/21, 02:20 Hct, (40-54) 48.3 % 06/09/21, 02:20 Plt Count, (150-450) 270 K/mm3 06/09/21, 02:20 CHEMISTRY Potassium, (3.5-5.1) 3.7 mmol/L 06/09/21, 02:20 Sodium, (136-145) 138 mmol/L 06/09/21, 02:20 BUN, (7-18) 15 mg/dL 06/09/21, 02:20 Creatinine, (0.70-1.30) 1.23 mg/dL 06/09/21, 02:20 Glucose, (74-106) 114 mg/dL H 06/09/21, 02:20 COAG Pre-Assessment Diagnosis/Proposed Procedure Planned Operative Procedure(s): COLONOSCOPY Anesthesia 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 When Was Last Pacemaker Check QUESTION #4 FULL TEXT: You/Your Family Experience fever (hyperthermia) with Anesthesia Last Oral Intake Last Oral intake: Last Oral Intake NPO since 20:00 05/21/25 07:16 Meds taken in AM with sips of water? Meds patient instructed to take am of surgery PONV PONV - nuclear physics teacher: PONV - nuclear physics teacher Female No 05/16/25 14:56 HX of Motion Sickness No 05/16/25 14:56 HX of N/V After Surgery No 05/16/25 14:56 Non-Smoker No 05/16/25 14:56 Duration of Surgery greater No 05/16/25 14:56 than 60 minutes Number of Risk Factors PONV Score Height & Weight Height & Weight: Anesthesia: Height & Weight Height 6 ft 4 in 05/21/25 07:16 Weight: 147 kg 05/21/25 07:16 Body Mass Index (BMI) 39.4 05/21/25 07:16 Respiratory Assessment Respiratory Assessment - nuclear physics teacher: Respiratory Tract Infection Hx - nuclear physics teacher Hx Respiratory Tract Infection No 05/16/25 14:56 STOP Sleep Apnea STOP Sleep Apnea - nuclear physics teacher: STOP Sleep Apnea - nuclear physics teacher Hx Hypertension No 05/16/25 14:56 Hx Sleep Apnea No 05/16/25 14:56 CPAP BIPAP Do you snore loudly (louder No 05/16/25 14:56 than talking or can be heard Do you often feel tired/ No 05/16/25 14:56 fatigued/ sleepy during daytime? Has anyone observed you stop No 05/16/25 14:56 breathing during sleep? STOP Results Negative 05/16/25 14:56 QUESTION #5 FULL TEXT : Do you snore loudly (louder than talking or can be heard through closed doors)? 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 Specify any problems Hx of Preganancy in last 3 N/A 05/16/25 14:56 Months Nurse Filling Out Transfusion VCHRISTIN 05/16/25 14:56 & Questions: Date: 05/16/25 05/16/25 14:56 Time: 14:57 05/16/25 14:56 Patient unable to answer at this time (ie. confused, unrespo /Reproduction History /Reproductive History - nuclear physics teacher: /Reproductive Hx- nuclear physics teacher Hx Now No 05/16/25 14:56 Gestational Age (in weeks): EDC: Hx Hx Para Hx Section SAB No 05/16/25 14:56 Active Medications Active Medications: Current Medications Generic Name Dose Route Start Last Admin Trade Name Freq PRN Reason Stop Dose Admin Lactated Ringer's 1,000 mls @ 15 mls/hr 05/21/25 07:15 05/21/25 07:22 IV 15 mls/hr .Q48H MEKHI Administration PFSH Medical History Wears glasses Injury of head and neck Smoker Anxiety Depression Traumatic brain injury History of diverticulitis Home Medications Medication Instructions Recorded Last Taken Type citalopram 40 mg tablet (Celexa) 80 mg PO QDAY 05/08/25 05/20/25 History diazepam 10 mg tablet (Valium) 30 - 50 mg PO BID-TID PRN anxiety 05/08/25 05/20/25 History lidocaine nasal spray 1 spray NASAL PRN 05/08/25 05/20/25 History super colon cleanse 1 tab PO DAILY PRN STOOL SOFTENER 05/08/25 05/20/25 History mqkcfabl-ntcpho-iwr-yoh-fpz-mciw-horse 1 tab PO .weekly 05/08/25 05/20/25 History 100 mg-100 mg-100 mg-125 mg tab (Tumersaid) Allergy/AdvReac Type Severity Reaction Status Date / Time No Known Allergies Allergy Verified 05/08/25 14:28 Family History Mother Kidney disease CVA (cerebral vascular accident) Father Cancer thyroid Surgical History Hx of mastoidectomy Hx of hernia repair H/O colostomy History of bowel resection Social History Smoking Status: Current every day smoker tobacco type: cigarettes quit status: quit date established Review of Systems (Anesthesia) ROS Narrative System reviewed and no additional complaints, except as documented.
--- NOTE | 2025-05-21 08:15 | COLBX_PTH ---
PATIENT: SHERLEY RICHARDS LOC: EN U#:[id number] AGE/SX: 55/M ROOM: RE05/21/[address]: Dr. Abdulaziz Daley MD : 1970 BED: DIS: 05/21/2025 SPEC #: [id number] RECD: 05/21/25 10:22 STATUS: DAVID MUIR #: [id number] YANETH: 05/21/25 08:[address]: Abdulaziz Daley DEPT: SURGICAL PATHOLOGY RECD BY: Julio Cesar Bearden ENTERED: 05/21/25 11:16 SP TYPE: COLON BX OTHR DR: Dr. Abril Robles DO Tissues: A - Cecum, NOS B - Descending colon C - Sigmoid colon biopsy Procedures: Surgery Specimen Level IV HEADER OPERATION: Colonoscopy, biopsy, polypectomy PRE-OP DIAGNOSIS: Encounter for screening for malignant neoplasm of colon TISSUE SUBMITTED: A- Cecum polyp x2 bx, B- Descending polyp x2 bx, C- Sigmoid polyp MICROSCOPIC DIAGNOSIS A. Cecum, polyp, biopsy: - Tubular adenoma. B. Descending colon, polyp, biopsy: - Tubular adenoma. C. Sigmoid colon, polyp, biopsy: - Tubular adenoma. MICROSCOPIC DESCRIPTION Slides are reviewed. GROSS DESCRIPTION A. Received in fixative is one container labeled with the patient's name and designated "Cecum polyp biopsy." The specimen consists of three irregular fragments of lees tissue that measure 0.2 to 0.3 cm. The specimen is totally submitted in one cassette. B. Received in fixative is one container labeled with the patient's name and designated "Descending colon polyp bx." The specimen consists of two irregular fragments of lees tissue that measure 0.8 and 0.9 cm. The specimen is totally submitted in one cassette. C. Received in fixative is one container labeled with the patient's name and designated "Sigmoid polyp." The specimen consists of two irregular fragments of lees tissue that measure 0.5 and 0.9 cm. The specimen is totally submitted in one cassette. CA 05/21/2025 CPT:21416t1
--- NOTE | 2025-05-21 09:34 | PCM.POST.ANE ---
Anesthesia: Postop Eval I Current Vital Signs Temperature: 97.8 F Pulse Rate: 67 Blood Pressure: 97/49 Respiratory Rate: 18 Pulse Ox: 93 Oxygen Delivery Method: Room Air Assessment Airway patent: Yes Spontaneous unlabored respirations: Yes Mental status: Asleep nausea: No Vomiting: No Anesthesia Complication: No Fluid Hydration Crystalloid volume administer (ml): 800 Total IV fluid infused: 800 Progress Note Anesthesia document: Postop Eval 1 completed: Yes
--- NOTE | 2025-05-21 09:36 | OP.PROVAT_ITS ---
05/21/2025 Abril Robles [address] [place] [address] Re : Colonoscopy procedure for Kyrie Gomez Dear Dr. Robles This procedure was performed on Wednesday, May 21, 2025. My impressions and recommendations are as follows: Impressions : - Preparation of the colon was fair. - Diverticulosis in the sigmoid colon. - Internal hemorrhoids. - Two 2 to 3 mm polyps in the cecum, removed with a cold biopsy forceps. Resected and retrieved. - Two 3 to 4 mm polyps in the descending colon, removed with a cold biopsy forceps. Resected and retrieved. - One 5 mm polyp in the sigmoid colon, removed with a hot snare. Resected and retrieved. - The examination was otherwise normal on direct and retroflexion views. Recommendations : - Discharge patient to home (ambulatory). - High fiber diet. - Await pathology results. - Repeat colonoscopy in 3 - 5 years for screening purposes. - Return to my office PRN. - Continue present medications. My findings are described in the full procedure note, which is enclosed. If I can be of further assistance, please feel free to contact me at . Sincerely, Abdulaziz Daley MD 05/21/2025 9:36:16 AM This report has been signed electronically.
--- NOTE | 2025-05-21 09:36 | OP.COLON_ITS ---
Patient Name: Kyrie Gomez Procedure Date: 05/21/2025 8:32 AM Date of : 1970 Age: 55 Procedure: Colonoscopy Indications: High risk colon cancer surveillance: Personal history of colonic polyps Providers: Abdulaziz Daley MD Medicines: Monitored Anesthesia Care Patient Profile: Refer to note in patient chart for documentation of history and physical. Last Colonoscopy: 5 years ago. Complications: No immediate complications. Estimated blood loss: Minimal. Procedure: Pre-Anesthesia Assessment: - Prior to the procedure, a History and Physical was performed, and patient medications and allergies were reviewed. The patient's tolerance of previous anesthesia was also reviewed. The risks and benefits of the procedure and the sedation options and risks were discussed with the patient. All questions were answered, and informed consent was obtained. Prior Anticoagulants: The patient has taken no anticoagulant or antiplatelet agents. ASA Grade Assessment: III - A patient with severe systemic disease. After reviewing the risks and benefits, the patient was deemed in satisfactory condition to undergo the procedure. After I obtained informed consent, the scope was passed under direct vision. Throughout the procedure, the patient's blood pressure, pulse, and oxygen saturations were monitored continuously. The adult colonoscope was introduced through the anus and advanced to the cecum, identified by appendiceal orifice and ileocecal valve. The ileocecal valve, appendiceal orifice, and rectum were photographed. The entire colon was examined. The patient tolerated the procedure well. The quality of the bowel preparation was fair. Moderate Sedation: See the other procedure note for documentation of moderate sedation with intraservice time. Scope In: 8:43:20 AM Scope Withdrawal Time 0 hours 27 minutes 58 seconds Scope Out: 9:22:01 AM Total Procedure Duration Time 0 hours 38 minutes 41 seconds Findings: The perianal and digital rectal examinations were normal. A few small-mouthed diverticula were found in the sigmoid colon. Internal hemorrhoids were found during retroflexion. The hemorrhoids were moderate. Two semi-sessile polyps were found in the cecum. The polyps were 2 to 3 mm in size. These polyps were removed with a cold biopsy forceps. Resection and retrieval were complete. Verification of patient identification for the specimen was done by the nurse using the patient's name, date and medical record number. Estimated blood loss was minimal. Two semi-sessile polyps were found in the descending colon. The polyps were 3 to 4 mm in size. These polyps were removed with a cold biopsy forceps. Resection and retrieval were complete. Verification of patient identification for the specimen was done by the nurse using the patient's name, date and medical record number. Estimated blood loss was minimal. A 5 mm polyp was found in the sigmoid colon. The polyp was semi-pedunculated. The polyp was removed with a hot snare. Resection and retrieval were complete. Verification of patient identification for the specimen was done by the nurse using the patient's name, date and medical record number. Estimated blood loss was minimal. The exam was otherwise without abnormality on direct and retroflexion views. Impression: - Preparation of the colon was fair. - Diverticulosis in the sigmoid colon. - Internal hemorrhoids. - Two 2 to 3 mm polyps in the cecum, removed with a cold biopsy forceps. Resected and retrieved. - Two 3 to 4 mm polyps in the descending colon, removed with a cold biopsy forceps. Resected and retrieved. - One 5 mm polyp in the sigmoid colon, removed with a hot snare. Resected and retrieved. - The examination was otherwise normal on direct and retroflexion views. Recommendation: - Discharge patient to home (ambulatory). - High fiber diet. - Await pathology results. - Repeat colonoscopy in 3 - 5 years for screening purposes. - Return to my office PRN. - Continue present medications. Procedure Code(s): --- Professional --- 39795, Colonoscopy, flexible; with removal of tumor(s), polyp(s), or other lesion(s) by snare technique 14884, 59, Colonoscopy, flexible; with biopsy, single or multiple Diagnosis Code(s): --- Professional --- Z86.010, Personal history of colonic polyps K64.8, Other hemorrhoids D12.0, Benign neoplasm of cecum D12.4, Benign neoplasm of descending colon K57.30, Diverticulosis of large intestine without perforation or abscess without bleeding D12.5, Benign neoplasm of sigmoid colon CPT copyright 2021 [employer]. All rights reserved. The codes documented in this report are preliminary and upon pie filling mixer review may be revised to meet current compliance requirements. Abdulaziz Daley MD 05/21/2025 9:36:16 AM This report has been signed electronically. Number of Addenda: 0 Note Initiated On: 05/21/2025 8:32 AM
--- NOTE | 2025-05-21 12:24 | PCM.POSTANE2 ---
Anesthesia Postop Eval I Sum Postop Eval Completion status Anesthesia document: Postop Eval 1 completed: Yes Anesthesia Postop Eval I Summary Anesthesia Postop Eval I Summary: Anesthesia Postop Eval I: Assessment Summary Airway patent Yes 05/21/25 09:35 [email or web address] Spontaneous unlabored Yes 05/21/25 09:35 [email or web address] respirations Mental status Asleep 05/21/25 09:35 [email or web address] nausea No 05/21/25 09:35 [email or web address] Vomiting No 05/21/25 09:35 [email or web address] Anesthesia Postop Eval I: Fluid Summary Crystalloid volume administer 800 05/21/25 09:35 [email or web address] (ml) Colloids volume administered ( ml) Blood Product volume administered (ml) Total IV fluid infused 800 05/21/25 09:35 [email or web address] Anesthesia Postop Eval I: Summary Notes Anesthesia Complication No 05/21/25 09:35 [email or web address] Anesthesia Complication Comment: Post-operative progress note Anesthesia: Postop Eval II Evaluation Mental status: Awake and Calm Pain Level: 0 nausea: No Vomiting: No Complications Anesthesia Complication: No
== END 2025-05-21 10:28 | disposition home or self-care (01) ==
LOC: EN 06:59 → AC 07:01
PROVIDERS: PCP Internal Medicine; Referring Provider Internal Medicine; Visit Provider Surgery
DX: Z12.11 Encounter for screening for malignant neoplasm of colon (principal); K64.8 Other hemorrhoids; K57.30 Diverticulosis of large intestine without perforation or abscess without bleeding; Z86.0100 Personal history of colon polyps, unspecified; F17.210 Nicotine dependence, cigarettes, uncomplicated; Z79.899 Other long term (current) drug therapy; D12.0 Benign neoplasm of cecum; D12.4 Benign neoplasm of descending colon; D12.5 Benign neoplasm of sigmoid colon
CPT/HCPCS: 45385; 45380; 88305; J2405